=== PATIENT | male | born 1945 | race Caucasian/White ===

== ENCOUNTER 2024-04-29 18:36 | Inpatient (IN) | payer MEDICARE, OTHER, SELFPAY ==
[2024-04-29] VITALS (19 sets, daily range): BP systolic 110–131; BP diastolic 61–97; BMI 23.9
[2024-04-29] MEDS: LOW STRENGTH ASPIRIN 324 MG PO (08:47)
[2024-04-29 09:01] LABS: INR 0.94; PT 13.1 Sec (11.4-14.6)
--- NOTE | 2024-04-29 11:02 | ITS.CL.CATH ---
[facility] [facility] Superintendent - Catheterization
Cardiac Catheterization
Procedure Report:
LEFT HEART CATHETERIZATION
Date of Procedure: April 29, 2024
Procedures performed:
1: Coronary angiography
2: Left ventriculography
Primary Care Physician: Dr. Erin Gabriel
Primary Product Steward: Dr. Chris Guzman
INDICATION: The patient is 78-year-old man who presents with crescendo angina. He had symptoms as recently as last night while moving wood pellets.
ACCESS: The patient was prepped and draped in usual sterile fashion. A 6 [place] sheath was placed in the right radial artery using the Seldinger over the wire technique.
HEMODYNAMIC FINDINGS (mmHg):
LV(s/d,EDP): 121/8, 12
Ao(s/d,m): 123/61, 84
ANGIOGRAPHIC FINDINGS:
Single-plane Left Ventriculography in [place] Projection: Preserved LV systolic function with no significant mitral regurgitation. Visually estimated ejection fraction 60 to 65%
Coronary Angiography:
Dominance: Right
Left Main: Medium caliber with smooth distal calcified 50% stenosis.
Left Anterior Descending: The left anterior descending artery is a medium caliber vessel that has a smooth calcified 40 to 50% ostial stenosis followed by a proximal 6070% focal stenosis. The distal LAD and major distal diagonal branch are widely
patent with normal flow.
Left Circumflex: The circumflex is a small caliber nondominant system that gives rise to 2 major obtuse marginal branches. The ostial circumflex has a calcified 80 to 90% stenosis. The distal vessels are widely patent.
Right Coronary: The right coronary artery is a medium caliber dominant vessel that gives rise to a small caliber posterior descending artery and larger posterior left ventricular branch system. The right coronary artery is heavily calcified within
the proximal and mid portions of the AV groove. There is a smooth 80% stenosis in the mid RCA followed by diffuse 40 to 50% disease. The distal vessel appears to be a good target in the AV groove.
Fluoroscopy Time (min): 2.8
Radiation Dose (mGy): 289
DAP (Gy.cm2): 18.4
Closure device: None. A TR band was applied for hemostasis at the right wrist.
Complications: None.
ASSESSMENT:
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
2: Normal left regular systolic function with no significant mitral gravitation and normal filling pressures.
CONCLUSIONS and RECOMMENDATIONS:
1: Admit for CT surgical evaluation for CABG. Given his crescendo symptoms I think we should consider doing this as an inpatient prior to discharge.
Leni Pritchard M.D.
Copy to: Dr. Erin Gabriel
[2024-04-29] MEDS: NSS 1000 IV ×2 (11:43→12:16)
--- NOTE | 2024-04-29 12:17 | PTCARENOTE ---
Received pt from recovery area. Aox3, no complaints of pain or discomfort. Right radial site CDI. VSS. CAll de within reach.
--- NOTE | 2024-04-29 13:03 | CONSULT.CT ---
Consultation
-
Date/Time Consultation Requested: 04/29/24
Date/Time Consultation Performed: 04/29/24
Requesting Provider: Jaime Pritchard
Performing Provider: Philipp BAH for Errol Bolton MD
Reason for Consultation: CABG evaluation
Patient History
Physicians
Family Physician: Erin Gabriel
Outpatient Cat Cracker Operator: Chris Guzman
Inpatient Cat Cracker Operator: [facility]
History of Present Illness
70-year-old followed by Dr. Chris Guzman for a history of atrial fibrillation (since 2017) and pulmonary embolism (2021)- on Coumadin, who had a positive nuclear stress test last week due to approximately a year long history of throat
tightness ('like a fish flopping around') that worsened with stressful activity but sometimes occurred while watching TV. Mr. Weinstein presented to [facility] 04/29/24 for an elective heart cath which revealed triple-vessel coronary disease.
LHC (R radial -Dr Pritchard):
50% distal left main
40-50% ostial and 60-70% proximal LAD
80-90% ostial (nondominant) circumflex
80% mid RCA followed by diffuse 40-50% stenosis
TTE (04/24/24 [facility]):
LVEF 64.2%. Normal RV size and function. No aortic stenosis or insufficiency. Mild mitral regurgitation
Past Medical History
Past Medical History: Atrial Fib (since 2021) and Other (Pulmonary embolism)
Past Surgical History
Past Surgical History: Appendectomy, Tonsilectomy and Other (Bilateral carpal tunnel release)
Family History
Mother: at Age
Father: at Age
Social History
Alcohol: Occasional
Drug: None
Tobacco: Non-Smoker
Personal:
Living: With Spouse
Employment: Employed (david/contractor)
Allergies
Allergy/AdvReac Type Severity Reaction Status Date / Time
No Known Allergies Allergy Unverified 04/29/24 09:03
Home Medications
�Medication �Instructions �Recorded �Confirmed �Type
acetaminophen 325 mg tablet 650 mg PO Q6H PRN as needed 04/29/24 04/29/24 History
(Tylenol)
metoprolol succinate 50 mg 50 mg PO QPM 04/29/24 04/29/24 History
tablet,extended release 24 hr
nitroglycerin 0.4 mg sublingual 0.4 mg sublingual Q5-15M PRN as 04/29/24 04/29/24 History
tablet needed
warfarin 7.5 mg tablet 7.5 mg PO QPM 04/29/24 04/29/24 History
Review of Systems
-
History Source: Patient
General: Reports No Symptoms
HEENT: Reports No Symptoms
Respiratory: Reports SOB
Cardiac: Reports No Symptoms
Abdomen/GI: Reports No Symptoms
: Reports No Symptoms
Musculoskeletal: Reports No Symptoms
Skin: Reports No Symptoms
Neurological: Reports No Symptoms
Vascular: Reports No Symptoms
Physical Exam
Vital Signs
Temp 97.4 F 04/29/24 12:09
Temp route: Oral 04/29/24 12:09
Pulse 43 04/29/24 12:30
Resp Rate 16 04/29/24 12:09
Blood pressure 131/70 04/29/24 12:08
Blood pressure extremity used: Left upper arm 04/29/24 12:09
Position: Lying 04/29/24 12:09
MAP (cuff-Monae Monitor) 86 04/29/24 12:08
SaO2 98 04/29/24 12:37
Oxygen Mode of Delivery Room air 04/29/24 12:37
Can the patient verbally communicate their pain? Yes 04/29/24 12:37
Body Mass Index (BMI) 0.0 04/29/24 12:49
Labs
PT 13.1 Sec (11.4-14.6) 04/29/24 08:37
Exam
General: Well Developed, Well Nourished and Comfortable
HEENT: Normocephalic, Anicteric, Moist Mucous Membranes and PERRLA
Neck: Trachea Midline
Respiratory: Clear
Cardiac: S1/S2 and Regular Rhythm (SB @48BPM on telemetry review)
GI: Soft, Non Tender, Non Distended and Normal Bowel Sounds
Rectal: Deferred by Provider
Skin: Warm and Dry
Neuro: AO x 3, No Motor Deficits and Nonfocal/Grossly Intact
Extremities: Other (R TR band intact w/o bleeding)
Lymph: No Lymphadenopathy
Psych: Calm
Assessment / Plan
-
78-year-old male found to have triple-vessel coronary disease with preserved LV function
- last dose Coumadin was 04/23/24. Cardiology to determine need for bridge therapy
- Imaging reviewed by Dr. Bolton who spoke to patient regarding risks and benefits of CABG procedure
- Preoperative diagnostics in process for STS risk score calculation
- Patient scheduled for CABG on Monday 05/01
Data Reviewed
-
EKG: Report Reviewed by me and Discussed with Physician
Sap Gatherer: Report Reviewed by me and Discussed with Physician
Echo: Report Reviewed by me and Discussed with Physician
Labs: Labs Reviewed by me and Discussed with Physician
--- NOTE | 2024-04-29 13:47 | PTCARENOTE ---
HR dropped to 39, Peggy Verma NP, made aware. Orders to stop metoprolol. Will continue to monitor.
--- NOTE | 2024-04-29 16:39 | CM ---
CM following for DC planning needs.
Met w/ patient at bedside to complete initial assessment.
Pt. reports that he resides w/ spouse in a private, 2 story home without any steps to enter. He is functionally indep. at baseline w/ ADLs, mobility without the use of any assisted device. He still works as a david.
Pt. reports no other DME in the home, including O2.
Pt. has RX plan and uses [facility] [place] on [address] [facility] for prescription needs.
Pt. anticipates CT Surgery on Saturday.
I reviewed CM role and notified that I will return on . for pre-operative teaching.
Will cont to follow.
[2024-04-29 17:14] LABS: Hematocrit 40.4 % (39.0-52.0); Hemoglobin 13.9 g/dL (13.0-18.0); Mean Corp Hgb Conc. 34.4 g/dL (33.0-37.0); Mean Corpuscular Hgb 33.2 pg (27.0-31.0); Mean Corpuscular Volume 96.4 fL (80.0-94.0); Mean Platelet Volume 9.7 fL (7.4-10.4); Platelet Count 206 10^3/uL (130-400); Red Blood Cell Count 4.19 10^6/uL (4.70-6.10); Red Cell Dist. Width 12.6 % (11.5-14.5); White Blood Cell Count 4.1 10^3/uL (4.8-10.8)
[2024-04-29 17:22] LABS: APTT 30.6 Sec (23.4-35.0)
[2024-04-29] MEDS: LIPITOR 80 MG PO (17:31)
[2024-04-29] MEDS: HEPARIN 25000 UNITS/250 ML IV (17:31)
--- NOTE | 2024-04-29 20:30 | PTCARENOTE ---
Assumed care of pt from IVU RN. Pt to room 2260. Walking rounds completed. Pt AAOx3. Up ad sharad to the bathroom. Pt sinus lorena on the tele monitor. HR high 40s-60s. BP stable. Palpable pulses throughout. No edema. Pt 97% on RA. Lung sounds clear.
Deep breathing and IS encouraged. Abdomen soft/nontender. +BS. Pt voiding spontaneously. Hx of fall at home. Abrasion on elbow C/D/I. Right radial cath site intact. Next PTT ~2330. Denies pain at this time. See worklist for full nursing assessment
and interventions. Call de within reach.
[2024-04-30] VITALS (7 sets, daily range): BP systolic 107–146; BP diastolic 65–97; BMI 23.7
--- NOTE | 2024-04-30 | PTCARENOTE ---
No acute changes in assessment. Pt sinus lorena on the tele monitor. HR 40-50s. BP 122/68. Right radial cath site intact. Heparin infusing. PTT drawn and sent. Call de within reach.
[2024-04-30 00:08] LABS: APTT 94.8 Sec (23.4-35.0)
--- NOTE | 2024-04-30 03:47 | PTCARENOTE ---
No change in assessment. Pt sinus lorena on the monitor. HR 50s. BP stable. Pt on RA. POX 98%. Heparin infusing as ordered. Labs drawn and sent. Call de within reach.
[2024-04-30 04:17] LABS: Hematocrit 38.7 % (39.0-52.0); Hemoglobin 13.5 g/dL (13.0-18.0); Mean Corp Hgb Conc. 34.9 g/dL (33.0-37.0); Mean Corpuscular Hgb 33.3 pg (27.0-31.0); Mean Corpuscular Volume 95.6 fL (80.0-94.0); Mean Platelet Volume 10.1 fL (7.4-10.4); Platelet Count 188 10^3/uL (130-400); Red Blood Cell Count 4.05 10^6/uL (4.70-6.10); Red Cell Dist. Width 12.3 % (11.5-14.5)
[2024-04-30 04:32] LABS: INR 1.03; PT 13.9 Sec (11.4-14.6)
[2024-04-30 04:34] LABS: APTT 57.6 Sec (23.4-35.0)
[2024-04-30 04:43] LABS: ALT (SGPT) 16 U/L (0-50); AST (SGOT) 29 U/L (17-59); Albumin 3.7 g/dl (3.5-5.0); Alkaline Phosphatase 50 U/L (38-126); Blood Urea Nitrogen 22 mg/dl (9-20); Calcium 8.5 mg/dl (8.4-10.2); Carbon Dioxide 24 mmol/L (22-30); Chloride 107 mmol/L (98-107); Direct Bilirubin 0.1 mg/dl (0.0-0.4); Estimated Creatinine Clearance 68 ml/min; Glucose 98 mg/dl (70-99); HDL Cholesterol 63 mg/dl; LDL Cholesterol, Calculated 129 mg/dl; Potassium 4.1 mmol/L (3.5-5.1); Sodium 138 mmol/L (135-145); Total Bilirubin 0.9 mg/dl (0.2-1.3); Total Cholesterol 206 mg/dl (50-199); Total Protein 5.9 g/dl (6.3-8.2); Triglyceride 72 mg/dl (10-149); Very Low Density Lipoprotein 14 mg/dl (0-30); eGFR > 60.00
--- NOTE | 2024-04-30 08:00 | PTCARENOTE ---
Assumed care of patient from sr. payroll processor RN. NEEMAO x 3. SB on monitor. Room air 99%. Heparin drip infusing. Plan for day discussed.
--- NOTE | 2024-04-30 08:25 | W.PN.CARDCBS ---
Addendum entered and electronically signed by Ervin Garcia DO 04/30/24 18:30:
I saw and examined the patient.
The Inside Technical Sales Representative's note was reviewed and I agree with the note.
Comment:
Plan:
Reviewed cath with pt
CT surgery evaluating
CABG likely next 24-48 hrs
Cont IV Heparin, coumadin held
Outpt follow up ATC
Original Note:
Today's Communication / Plan
-
Continue workup per CT surgery.
Tentative plan for CABG in AM
Check ECG
Continue heparin while coumadin on hold
Impression / Plan
-
PCP: Dr. Erin Gabriel
Chemical Production Technician: Dr. Guzman ([facility])
Impression:
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
Paroxysmal atrial fibrillation
h/o PE 2021
Chronic coumadin AC
Echo 04/24/2024 @[facility]: EF 64%, mild MR
Plan:
-He has been having crescendo angina as outpatient and had positive stress test last week. Presented for elective LHC 04/29/2024.
-LHC revealed MV CAD with 50% distal left main, 60-70% stenosis of proximal LAD, 80-90% stenosis of ostial circ, and 80% stenosis of mid RCA.
-CT surgical evaluation ongoing, tentative plan is for CABG tomorrow, 05/01/2024.
-No chest pain overnight. Check ECG.
-No afib noted on review of telemetry.
-Echo 04/24 as noted above with preserved EF and mild MR.
-Coumadin on hold in preparation for CABG. Continue Heparin gtt.
-Continue aspirin 81mg daily
-LDL 129, new to lipitor 80mg daily.
-Hgb A1c 5.5%
Progress Note - Chemical Production Technician
Subjective
Date of Service: April 30, 2024
No complaints
Objective
Labs:
04/30/24 03:39
04/30/24 03:39
Labs
Hgb 13.5 g/dL (13.0-18.0) 04/30/24 03:39
Hct 38.7 % (39.0-52.0) L 04/30/24 03:39
Plt Count 188 10^3/uL (130-400) 04/30/24 03:39
PT 13.9 Sec (11.4-14.6) 04/30/24 03:39
INR 1.03 04/30/24 03:39
APTT 57.6 Sec (23.4-35.0) H 04/30/24 03:39
Sodium 138 mmol/L (135-145) 04/30/24 03:39
Potassium 4.1 mmol/L (3.5-5.1) 04/30/24 03:39
BUN 22 mg/dl (9-20) H 04/30/24 03:39
Creatinine 0.9 mg/dL (0.7-1.3) 04/30/24 03:39
Glucose 98 mg/dl (70-99) 04/30/24 03:39
Vital Signs and I&O:
Vital Signs
Temp Pulse Resp BP Pulse Ox
97.7 F 50 16 119/69 98
04/30/24 03:27 04/30/24 07:00 04/30/24 03:27 04/30/24 03:31 04/30/24 03:27
Vital Signs
Temp Pulse Resp BP Pulse Ox
97.7 F 50 16 119/69 98
04/30/24 03:27 04/30/24 07:00 04/30/24 03:27 04/30/24 03:31 04/30/24 03:27
Intake & Output
04/28/24 04/29/24 04/30/24 05/01/24
06:59 06:59 06:59 06:59
Intake Total 101 / 101
Balance
Physical Exam
Physical Exam
GEN: No distress, awake, alert, oriented x3
HEENT: supple, anicteric, mmm
LUNGS: CTA b/l, no wheezes/rales
CV: Reg, S1/S2, no murmur
EXT: No clubbing, cyanosis, or edema
NEURO: Gross non-focal
SKIN: Warm, dry, no rash
[2024-04-30 08:32] LABS: Glycohemoglobin (HgbA1c) 5.5 % (4.0-5.6)
[2024-04-30] MEDS: LOW STRENGTH ASPIRIN 81 MG PO (08:46)
--- NOTE | 2024-04-30 12:31 | CM ---
Chart reviewed. Patient is independent of ADLS, still works, lives with his in a 2 STH, 0 HANY, 0 DME. Reviewed preoperative and postoperative instructions and restrictions, along with showering guidelines. Patient is agreeable to a home
visit by CT Transitional RN. Plan is for the patient to return home with CT Transitional RN. CM to follow
[2024-04-30 12:34] LABS: APTT 129.3 Sec (23.4-35.0)
--- NOTE | 2024-04-30 13:02 | PTCARENOTE ---
Ambulating in room w/o issue. Denies pain. Heparin gtt adjusted after PTT obtained and resulted. Assessment unchanged from prior.
--- NOTE | 2024-04-30 14:04 | W.PN.UPDATE ---
Update Note
Progress Note Update
Continue ongoing workup. Tentative surgery date is tomorrow May 01, [address] Bolton.
Procedure Type:�Isolated CABG
Perioperative Outcome Estimate %
Operative Mortality 1.91%
Morbidity & Mortality 5.65%
Stroke 0.728%
Renal Failure 0.823%
Reoperation 2.41%
Prolonged Ventilation 2.62%
Deep Sternal Wound Infection 0.076%
Long Hospital Stay (>14 days) 3.8%
Short Hospital Stay (<6 days)* 41.8%
Clinical Summary
Planned Surgery: Isolated CABG, Urgent, First cardiovascular surgery
Demographics: 78 year old, White, male, 73kg, 175cm, BMI: 23.8 kg/m�
Lab Values: Creatinine: 0.9 mg/dL, Hematocrit: 38.7%, WBC Count: 5 10�/�L, Platelet Count: 264054 cells/�L
Substance Abuse: Never smoker, Alcohol use: <=1 drink/week
Coronary Artery Disease: 3 vessels diseased, Unstable Angina, VT: 1 to 7 Days
Valve Disease: Mild MR
Arrhythmia: Recent A-fib, Paroxysmal
[2024-04-30] MEDS: LIPITOR 80 MG PO (16:47)
[2024-04-30] MEDS: HEPARIN 25000 UNITS/250 ML IV (16:48)
--- NOTE | 2024-04-30 17:17 | PTCARENOTE ---
Visiting with family in waiting room. Heparin drip maintained. VSS. Assessment unchanged from prior. Pre op questions answered
--- NOTE | 2024-04-30 20:00 | PTCARENOTE ---
Assumed care of patient at 1900. Patient found resting in bed with family at bedside at time of assessment. Patient is AOx4, follows commands appropirately, moves all extremities, reports being ANVIK wears b/l HAs. Lung sounds are clear and equal
bilaterally saO2 97% on RA. Heart sounds are audible, patient is SR with first deg AV block on the monitor, no observable edema, palpable pulses. Patient has active BS throughout all four quadrants and is voiding in the bathroom. Patient has a L
elbow abrasion with silicone border foam small amount of sanguineous drainage which was changed, and has a generalized rash reportedly from psoriasis. Patient has L FA PIV receiving heparin at 900 units/hr. No c/o pain. Patient educated on preop
prep. Call de within reach.
[2024-05-01] VITALS (10 sets, daily range): BP systolic 75–130; BP diastolic 57–78; BMI 22.9
--- NOTE | 2024-05-01 | PTCARENOTE ---
Patient reassessed. VSS. Now SB on the monitor with first deg AV block. Call ed within reach. Patient clipped and first CHG shower performed prior to HS. Now NPO.
[2024-05-01 03:24] LABS: Hematocrit 38.7 % (39.0-52.0); Hemoglobin 13.7 g/dL (13.0-18.0); Mean Corp Hgb Conc. 35.4 g/dL (33.0-37.0); Mean Corpuscular Hgb 33.4 pg (27.0-31.0); Mean Corpuscular Volume 94.4 fL (80.0-94.0); Mean Platelet Volume 9.8 fL (7.4-10.4); Platelet Count 189 10^3/uL (130-400); Red Cell Dist. Width 12.3 % (11.5-14.5)
[2024-05-01 03:33] LABS: APTT 92.1 Sec (23.4-35.0)
[2024-05-01 04:15] LABS: Blood Urea Nitrogen 25 mg/dl (9-20); Calcium 8.9 mg/dl (8.4-10.2); Carbon Dioxide 23 mmol/L (22-30); Chloride 105 mmol/L (98-107); Estimated Creatinine Clearance 68 ml/min; Glucose 94 mg/dl (70-99); Potassium 4.2 mmol/L (3.5-5.1); Sodium 137 mmol/L (135-145); eGFR > 60.00
[2024-05-01] MEDS: MAGNESIUM OXIDE 500 MG PO (05:53)
[2024-05-01] MEDS: PROTONIX 40 MG PO (05:53)
[2024-05-01] MEDS: LOPRESSOR 12.5 MG PO (05:54)
[2024-05-01] MEDS: BACTROBAN 2% OINTMENT 1 APPLIC NASAL ×2 (05:55→21:07)
[2024-05-01 07:13] LABS: ACT+ - POC 118 Seconds (82-134)
[2024-05-01 07:14] LABS: B.E. - POC -2.3 mmol/L; Glucose - POC 98 mg/dl (70-99); HCO3 - POC 21 mmol/L (21-28); Hematocrit - POC 37 % PCV (42-52); Hemodilution- POC No; Hemoglobin Calculated - POC 12.5; Ionized Calcium - POC 1.19 mmol/L (1.15-1.33); Lactate - POC 0.36 mmol/L (0.36-0.75); O2 Saturation %Calculated-POC 99.9 % (94-98); PCO2 - POC 33 mmHg (35-48); PO2 - POC 259 mmHg (83-108); POC Comment PRE; Potassium - POC 3.7 mmol/L (3.5-5.1); Sodium - POC 139 mmol/L (136-145); Specimen Type - POC Arterial; pH - POC 7.43 (7.35-7.45)
[2024-05-01 08:14] LABS: Urine Albumin Negative (Neg - Trace); Urine Bilirubin Negative (Negative); Urine Character Clear (Clear); Urine Color Yellow; Urine Glucose Negative (Negative); Urine Ketone Negative (Negative); Urine Leukocyte Negative (Negative); Urine Nitrite Negative (Negative); Urine Occult Blood Negative (Negative); Urine Specific Gravity 1.015 (<1.030); Urine Urobilinogen Negative (Neg - 1+)
[2024-05-01 09:32] LABS: ACT+ - POC 542 Seconds (82-134)
[2024-05-01 09:33] LABS: B.E. - POC 1.1 mmol/L; Glucose - POC 111 mg/dl (70-99); HCO3 - POC 25 mmol/L (21-28); Hematocrit - POC 34 % PCV (42-52); Hemodilution- POC No; Hemoglobin Calculated - POC 11.4; Ionized Calcium - POC 1.09 mmol/L (1.15-1.33); O2 Saturation %Calculated-POC 99.8 % (94-98); PCO2 - POC 37 mmHg (35-48); PO2 - POC 209 mmHg (83-108); Potassium - POC 3.8 mmol/L (3.5-5.1); Sodium - POC 140 mmol/L (136-145); Specimen Type - POC Arterial; pH - POC 7.44 (7.35-7.45)
[2024-05-01 09:59] LABS: ACT+ - POC 457 Seconds (82-134)
[2024-05-01 10:16] LABS: ACT+ - POC 628 Seconds (82-134)
[2024-05-01 10:19] LABS: B.E. - POC 5.2 mmol/L; Glucose - POC 112 mg/dl (70-99); HCO3 - POC 28 mmol/L (21-28); Hematocrit - POC 32 % PCV (42-52); Hemodilution- POC Yes; Hemoglobin Calculated - POC 10.9; Ionized Calcium - POC 1.05 mmol/L (1.15-1.33); Lactate - POC < 0.30 mmol/L (0.36-0.75); PCO2 - POC 36 mmHg (35-48); PO2 - POC 379 mmHg (83-108); POC Comment CPB; Potassium - POC 3.4 mmol/L (3.5-5.1); Sodium - POC 139 mmol/L (136-145); Specimen Type - POC Arterial; pH - POC 7.51 (7.35-7.45)
[2024-05-01 10:27] LABS: B.E. - POC 1.8 mmol/L; Glucose - POC 110 mg/dl (70-99); HCO3 - POC 26 mmol/L (21-28); Hematocrit - POC 27 % PCV (42-52); Hemodilution- POC Yes; Hemoglobin Calculated - POC 9.3; Ionized Calcium - POC 1.01 mmol/L (1.15-1.33); Lactate - POC 0.47 mmol/L (0.36-0.75); O2 Saturation %Calculated-POC 99.9 % (94-98); PCO2 - POC 35 mmHg (35-48); PO2 - POC 281 mmHg (83-108); POC Comment CPB; Potassium - POC 4.4 mmol/L (3.5-5.1); Sodium - POC 137 mmol/L (136-145); Specimen Type - POC Arterial; pH - POC 7.47 (7.35-7.45)
[2024-05-01 10:29] LABS: ACT+ - POC 634 Seconds (82-134)
[2024-05-01 10:52] LABS: B.E. - POC 0.7 mmol/L; Glucose - POC 125 mg/dl (70-99); HCO3 - POC 26 mmol/L (21-28); Hematocrit - POC 28 % PCV (42-52); Hemodilution- POC Yes; Hemoglobin Calculated - POC 9.6; Ionized Calcium - POC 1.06 mmol/L (1.15-1.33); Lactate - POC 0.39 mmol/L (0.36-0.75); O2 Saturation %Calculated-POC 99.9 % (94-98); PCO2 - POC 41 mmHg (35-48); PO2 - POC 291 mmHg (83-108); POC Comment CPB; Potassium - POC 4.1 mmol/L (3.5-5.1); Sodium - POC 140 mmol/L (136-145); Specimen Type - POC Arterial
[2024-05-01 10:55] LABS: ACT+ - POC 620 Seconds (82-134)
[2024-05-01 11:18] LABS: B.E. - POC 2.5 mmol/L; Glucose - POC 131 mg/dl (70-99); HCO3 - POC 27 mmol/L (21-28); Hematocrit - POC 27 % PCV (42-52); Hemodilution- POC Yes; Hemoglobin Calculated - POC 9.3; Ionized Calcium - POC 1.06 mmol/L (1.15-1.33); Lactate - POC 0.33 mmol/L (0.36-0.75); O2 Saturation %Calculated-POC 99.9 % (94-98); PCO2 - POC 39 mmHg (35-48); PO2 - POC 282 mmHg (83-108); POC Comment CPB; Potassium - POC 4.2 mmol/L (3.5-5.1); Sodium - POC 140 mmol/L (136-145); Specimen Type - POC Arterial; pH - POC 7.45 (7.35-7.45)
[2024-05-01 11:21] LABS: ACT+ - POC 593 Seconds (82-134)
--- NOTE | 2024-05-01 11:27 | CM ---
Chart reviewed. Patient is in the OR today. Patient is independent of ADLS, lives with his , in a 2 STH, 0 HANY, 0 DME. Plan is for the patient to return home with CT Transitional RN. CM to follow
[2024-05-01 11:45] LABS: Glucose - POC 140 mg/dl (70-99); HCO3 - POC 25 mmol/L (21-28); Hematocrit - POC 29 % PCV (42-52); Hemodilution- POC Yes; Hemoglobin Calculated - POC 9.9; Ionized Calcium - POC 1.07 mmol/L (1.15-1.33); Lactate - POC 0.67 mmol/L (0.36-0.75); O2 Saturation %Calculated-POC 99.9 % (94-98); PCO2 - POC 41 mmHg (35-48); PO2 - POC 288 mmHg (83-108); POC Comment WARM; Sodium - POC 141 mmol/L (136-145); Specimen Type - POC Arterial; pH - POC 7.39 (7.35-7.45)
[2024-05-01 11:46] LABS: ACT+ - POC 533 Seconds (82-134)
[2024-05-01 12:04] LABS: B.E. - POC 0.2 mmol/L; Glucose - POC 132 mg/dl (70-99); HCO3 - POC 25 mmol/L (21-28); Hematocrit - POC 29 % PCV (42-52); Hemodilution- POC Yes; Hemoglobin Calculated - POC 9.8; Ionized Calcium - POC 1.05 mmol/L (1.15-1.33); O2 Saturation %Calculated-POC 99.9 % (94-98); PCO2 - POC 41 mmHg (35-48); PO2 - POC 320 mmHg (83-108); POC Comment WARM; Potassium - POC 3.8 mmol/L (3.5-5.1); Sodium - POC 142 mmol/L (136-145); Specimen Type - POC Arterial
[2024-05-01 12:09] LABS: ACT+ - POC 549 Seconds (82-134)
[2024-05-01 12:35] LABS: ACT+ - POC 104 Seconds (82-134)
[2024-05-01 12:41] LABS: B.E. - POC -1.4 mmol/L; Glucose - POC 122 mg/dl (70-99); HCO3 - POC 23 mmol/L (21-28); Hematocrit - POC 26 % PCV (42-52); Hemodilution- POC Yes; Hemoglobin Calculated - POC 8.8; Ionized Calcium - POC 1.25 mmol/L (1.15-1.33); Lactate - POC < 0.30 mmol/L (0.36-0.75); PCO2 - POC 36 mmHg (35-48); PO2 - POC 458 mmHg (83-108); POC Comment POST; Potassium - POC 3.5 mmol/L (3.5-5.1); Sodium - POC 142 mmol/L (136-145); Specimen Type - POC Arterial; pH - POC 7.41 (7.35-7.45)
--- NOTE | 2024-05-01 12:59 | W.IMMPOSTOP ---
Addendum entered and electronically signed by Errol Bolton MD 05/01/24 14:25:
[id number]
Original Note:
Surgical Immed Post Op Note
-
CARDIAC SURGERY OPERATIVE NOTE:
Preoperative Dx:
MVCAD
PAF
Postoperative Dx:
Same
Procedures:
1) Median sternotomy
2) Takedown of JOHN (narrow pedicle)
3) Endoscopic harvest/prep of RLE GSV
4) Encompass MAZE procedure
5) ELAA (#35 AtriClip)
6) CABG x 4 (JOHN to LAD, GSV to D1, GSV to OM, GSV to RPDA)
Surgeon:
Errol Bolton M.D.
Assistants:
Camila Gibbs P.A.-C.; endoscopic harvest/prep of RLE GSV; certified surgical tech/first assistant throughout
Brionna Renae P.A.-C.; [id number] closure
Anesthesia:
Douglas Estrada M.D., Anabel Santiago, C.R.N.A. and Adelaide López, C.R.N.A.
Perfusion:
Karen Warner, C.C.P.; XC: 95min, CPB 146min
Findings:
JOHN was healthy appearing conduit w/ very brisk blood flow; ELD 2.75mm
GSV was healthy appearing conduit w/ ELD 3.25-3.50mm
ANAT was of windsock morphology & successfully excluded w/ a 35mm AtriClip - confirmed w/ PAULINA
Encompass ablation performed w/ 3 - lines @ 3 levels - Starting rhythm: Sinus Bradycardia; Ending rhythm: Sinus Bradycardia
LAD was obscured by epicardial adipose tissue. It was identified at its junction w/ D2 and tracked distally. Healthy landeros at anastomosis, ELD 2.75mm. Very brisk blood flow observed w/ release of proximal JOHN bulldog clamp
D1 was visible on the epicardial surface and then took a very shallow (0.5mm) intramyocardial course. Healthy landeros at anastomosis, ELD 1.75mm
OM was visible on the epicardial surface. Healthy landeros at anastomosis, ELD 2.5mm
RPDA was visible on the epicardial surface. Healthy landeros at anastomosis, ELD 2.25mm
Excellent flow in all grafts on postoperative transit-time U/S flow probe assessments
Post-PAULINA: Normal LVEF 60-65%, no RWMA, mild MR, mildly ascending aortic dilation (4.0cm)
Implants:
AtriClip 35mm
Epicardial V-wire x 1
Grounding wire x 1
CT x 4 (B/L pleural, inferior mediastinal, superior mediastinal)
Sternal wires x 6
Sternal 'X' plate w/ 4 - 14mm and 4 - 12mm screws
Sternal 'X' plate w/ 4 - 10mm screws
Complications:
None
Transfusions:
None
Condition:
58 isoelectric sinus (0.2/0.1); 107/63. CVP 16. 100%
GTTS: insulin 1, precedex 0.5
Stable/guarded to CVICU
--- NOTE | 2024-05-01 13:14 | W.CVOR.SURPR ---
CVOR Surgeon Immed Pre Op
-
I have examined this patient prior to performance of the scheduled procedure.
The patient's condition is unchanged from the time of the dictated/written History and
Physical and the patient is able to undergo the scheduled procedure.
[2024-05-01 13:37] LABS: Glucose - Point of Care 102 mg/dl (70-99)
--- NOTE | 2024-05-01 13:40 | CON.INTV ---
Consultation
Consultation Request
Date/Time Consultation Requested: 05/01/2024 - 1312
Date/Time Consultation Performed: 05/01/2024 - 1333
Requesting Provider: NIURKA Mitchell
Performing Provider: Dr. Vdiales
Reason for Consultation: s/p CABG x4
Medical History
-
Chief Complaint: Elective left heart catheterization
History of Present Illness:
78-year-old male with a past medical history of A-fib on Coumadin and history of PE who presented for an elective left heart catheterization. He is followed by Dr. Guzman and had a positive nuclear stress test last week due to a year-long history
of throat tightness that worsened with stress with activity and also occurred at times at rest. Left heart catheterization performed on 04/29/2024 showing severe triple-vessel disease. Surgical revascularization was recommended and the patient
agreed to this procedure. Today he underwent a CABG x 4 with a left atrial appendage exclusion with a 35 mm AtriClip. There were no complications and he was transferred to the CVICU in stable condition with [employer] services consulted for
additional management/recommendations.
When I saw the patient today he was resting in bed, on SIMV at 14/500/40%/5, pressure support: 5. PIP was 25 cmH2O, VTe 549 mL and breathing at 14 breaths/min. Heart rate 59 and BP via A-line: 93/52. Currently on Levophed at 4mcg/min, insulin
drip at 1.3 units/hr.
PMHx: A-fib (since 2021) on Coumadin, history of PE
PSHx: Appendectomy, tonsillectomy, bilateral carpal tunnel release
Past Medical History
Past Medical History: Other (Above as per HPI)
Past Surgical History: Other (Above as per HPI)
Social History
Tobacco: Non-smoker
Alcohol: Occasional
Drug: None
Personal:
Living: With Family
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
Family History
Family History: Reviewed & Not Pertinent
Allergies / Home Medications
Allergies
Allergy/AdvReac Type Severity Reaction Status Date / Time
No Known Allergies Allergy Unverified 04/29/24 09:03
Home Medications
�Medication �Instructions �Recorded �Confirmed �Last Taken �Type
acetaminophen 325 mg tablet 650 mg PO Q6H PRN MILD PAIN 04/29/24 04/29/24 Unknown History
(Tylenol)
metoprolol succinate 50 mg 50 mg PO QPM Heart 04/29/24 04/29/24 04/28/24 19:00 History
tablet,extended release 24 hr Disease/Condition
nitroglycerin 0.4 mg sublingual 0.4 mg sublingual Q5-15M PRN CHEST 04/29/24 04/29/24 04/28/24 16:00 History
tablet PAIN
warfarin 7.5 mg tablet 7.5 mg PO QPM Blood Clot 04/29/24 04/29/24 04/23/24 19:00 History
Prevention/Tx
Review of Systems
-
Unable to Obtain full review of systems at this time due to: Patient Intubation
Vitals / Labs / Diagnostic Testing
Vital Signs
Temp Pulse Resp BP Pulse Ox
96.2 F L 56 15 119/78 100
05/01/24 13:41 05/01/24 13:50 05/01/24 13:45 05/01/24 13:50 05/01/24 13:50
Laboratory Results
04/30/24 05/01/24 05/01/24
18:31 03:14 13:29
PT 19.5 H
INR 1.62
APTT 117.0 H 92.1 H 32.8
pH 7.43
pCO2 36
pO2 178 H
HCO3 23.9
O2 Delivery Level
Diagnostic Testing:
Physical Exam
-
HEENT: Normocephalic, Anicteric and Other (ETT in place)
Cardiovascular: S1/S2 and Peripheral Edema (negative)
Respiratory: Wheeze (negative), Rales (negative), Rhonchi (negative), Non-Labored Respirations, Other (Mechanical breath sounds heard bilaterally) and Other (bilateral pleural chest tubes and mediastinal chest tubes x2)
GI: Soft, Non Distended, Non Tender and Normal Bowel Sounds
Neurology: Tremors (negative) and Other (Sedated)
Skin: Warm and Dry
General: Respiratory Distress (negative), Comfortable, Fever (negative) and Chills (negative)
Assessment
-
Assessment: 78-year-old male with a past medical history of A-fib on Coumadin and history of PE who presented for an elective left heart catheterization. He is followed by Dr. Guzman and had a positive nuclear stress test last week due to a
year-long history of throat tightness that worsened with stress with activity and also occurred at times at rest. Left heart catheterization performed on 04/29/2024 showing severe triple-vessel disease. Surgical revascularization was recommended
and the patient agreed to this procedure. Today he underwent a CABG x 4 with a left atrial appendage exclusion with a 35 mm AtriClip. There were no complications and he was transferred to the CVICU in stable condition with [employer] services
consulted for additional management/recommendations.
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
Impression:
#Triple-vessel disease s/p CABG x 4 (POD #0)
#History of A-fib s/p left atrial appendage exclusion with 35mm AtriClip (POD#0)
#Acute anemia due to above
#Acute thrombocytopenia
#Hx of PE
Plan:
Ventilator settings reviewed
FiO2 will be weaned to maintain SpO2 >90-94%
Minute ventilation will be adjusted
Arterial blood gases will be monitored
Spontaneous breathing trial will be attempted with hopeful extubation after anesthesia/sedation wear off
prn nebulized bronchodilators
Pulmonary artery catheter parameters will be followed
Pressors/antihypertensive/inotropes/diuretics will be provided as needed
Maintain MAP>65
Replete electrolytes with K>4, Mg>2
Monitor chest tube output (bilateral pleural chest tubes + mediastinal chest tubes x2)
Monitor hemoglobin
Monitor platelet count and coags
Transfuse blood products as needed to maintain Hb>7g/dL, plt>50k (given post-operative status)
CT surgery managing chest tubes
Monitor blood sugar to maintain euglycemia with goal BG 140-180
Insulin drip per protocol
Aspiration precautions
VAP prevention protocol
DVT prophylaxis
Early nutrition
Early mobilization
Critical care statement: A total of 46 minutes of critical care time was provided for this patient today. This includes management of ventilator, spontaneous breathing trial, arterial blood gases, pressors, of unstable vital signs, evaluation of the
patient at bedside, reviewing the patient's pertinent medical records including radiographs, microbiology, laboratory evaluations, and discussion with primary team and critical care nursing.
[2024-05-01 13:43] LABS: B.E. -0.2 mmol/L; HCO3 23.9 mmol/L (21-28); Ionized Calcium 1.16 mMOL/L (1.15-1.33); PCO2 36 mmHg (35-48); PO2 178 mmHg (83-108); Potassium 3.3 mMOL/L (3.5-5.1); Sodium 139 mMOL/L (136-145); pH 7.43 (7.35-7.45)
--- NOTE | 2024-05-01 13:43 | W.PN.UPDATE ---
Update Note
Progress Note Update
70-year-old male followed by Dr. Chris Guzman for a history of atrial fibrillation (since 2017) and pulmonary embolism (2021)- on Coumadin, who had a positive nuclear stress test last week due to approximately a year long history of throat tightness
('like a fish flopping around') that worsened with stressful activity but sometimes occurred while watching TV. Mr. Weinstein presented to [facility] 04/29/24 for an elective heart cath which revealed triple-vessel coronary disease. Last
Coumadin dose was 04/23/24.
IV fluids: 1700
U.O.:� 750
Blood:� none
Wires:� 1 V-wire/1 ground wire
Inotropes:� none
Pressors:� none
Sedatives:� Precedex 0.5
�
NEURO: sedated, pupils +2mm B/L
RESP: #8OT @22cm> 500/60%/14/5. Lungs clear B/L. 2 mediastinal (XXcc on arrival) and R/L pleural (XXcc on arrival) chest tubes to -20cm suction. Sanguineous drainage
CV: RRR +S1, S2, no S3, no�rub, no murmur. Aquacell to median sternotomy. RIJ cordis intact
ABD: round, soft, no BS
EXT: no edema, +2/4 DP pulses B/L, no femoral bruit, RLE ERWIN wrap intact; left radial A-line intact
: Hull with clear yellow urine
�
A/P: POD #0 s/p CABG x 4 (JOHN to LAD, GSV to D1, GSV to OM, GSV to RPDA), [facility] MAZE, ELAA (#35 AtriClip)
PAULINA: EF�55-60%, mild MR/TR
- wean and extubate
# CAD
-will require ASA/Plavix, statin
- add beta moni as HR permits (currently SB)
# Hx atrial fibrillation
- currently sinus bradycardia
- Amiodarone for AF prophylaxis
- will discuss timing for resumption of anticoagulation with surgeon
# acute surgical blood loss anemia-expected
# acute post-op thrombocytopenia
- trend CBC and CT drainage
�
�
[2024-05-01 13:52] LABS: Hematocrit 27.4 % (39.0-52.0); Hemoglobin 9.8 g/dL (13.0-18.0); Platelet Count 88 10^3/uL (130-400)
[2024-05-01 13:55] LABS: INR 1.62; PT 19.5 Sec (11.4-14.6)
[2024-05-01 13:56] LABS: APTT 32.8 Sec (23.4-35.0)
[2024-05-01 14:05] LABS: Blood Urea Nitrogen 19 mg/dl (9-20); Estimated Creatinine Clearance 78 ml/min; Glucose 108 mg/dl (70-99); Magnesium 2.7 mg/dl (1.6-2.3)
[2024-05-01] MEDS: KCL 50 IV ×2 (14:10→15:30)
--- NOTE | 2024-05-01 14:59 | W.PN.CARDCBS ---
Addendum entered and electronically signed by Channing Henry MD 05/01/24 17:36:
I saw and examined the patient.
The Quality Assurance Consultant's note was reviewed and I agree with the note.
Comment: 78M presenting with crescendo angina found to have MV CAD and underwent CABG x4 earlier today
Doing well post-op
Extubated
Only requring low dose levo
Filling pressures at goal based on invasive hemodynamics
Maintaining sinus rhythm on telemetry
Agree with current cardiac meds�aspirin/Plavix, high intensity statin and beta-moni
Original Note:
Today's Communication / Plan
-
Continue post op care
Impression / Plan
-
PCP: Dr. Erin Gabriel
Professor Of Family Medicine: Dr. Guzman ([facility] Cardiology)
Impression:
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
s/p CABG x 4 (JOHN to LAD, GSV to D1, GSV to OM, GSV to RPDA), SWAPNA PRESLEY (#35 AtriClip) 05/01/2024
Paroxysmal atrial fibrillation
h/o PE 2021
Chronic coumadin AC
Echo 04/24/2024 @[facility]: EF 64%, mild MR
Plan:
-Noted crescendo angina as outpatient and had positive stress test, so referred for LHC 04/29/2024. LHC revealed MV CAD with 50% distal left main, 60-70% stenosis of proximal LAD, 80-90% stenosis of ostial circ, and 80% stenosis of mid RCA.
-s/p CABG x4 (JOHN to LAD, GSV to D1, GSV to OM, GSV to RPDA) 05/01/2024. POD#0.
-Seen post-op. Remains intubated, sedated.
-BPs have been labile, improving following fluid bolus.
-Levo currently off. Follow BP closely.
-No blood products required intra-op. Hgb 9.8. Plt 88. Continue to follow.
-Post-Op ECG overall stable compared to pre-op
-Echo 04/24 as noted above with preserved EF and mild MR.
-Coumadin held pre-op, resume once safe from a surgical standpoint.
-Continue aspirin, plavix.
-LDL 129, new to lipitor 80mg daily.
-Hgb A1c 5.5%
-Continue post op care
Progress Note - Professor Of Family Medicine
Subjective
Date of Service: May 01, 2024
intubated, sedated.
Objective
Labs:
05/01/24 13:29
Labs
Hgb 9.8 g/dL (13.0-18.0) L D 05/01/24 13:29
Hct 27.4 % (39.0-52.0) L 05/01/24 13:29
Plt Count 88 10^3/uL (130-400) L D 05/01/24 13:29
PT 19.5 Sec (11.4-14.6) H 05/01/24 13:29
INR 1.62 05/01/24 13:29
APTT 32.8 Sec (23.4-35.0) 05/01/24 13:29
Sodium 137 mmol/L (135-145) 05/01/24 03:14
Potassium 4.2 mmol/L (3.5-5.1) 05/01/24 03:14
BUN 19 mg/dl (9-20) 05/01/24 13:29
Creatinine 0.8 mg/dL (0.7-1.3) 05/01/24 13:29
Glucose 108 mg/dl (70-99) H 05/01/24 13:29
Vital Signs and I&O:
Vital Signs
Temp Pulse Resp BP Pulse Ox
96.2 F L 56 15 119/78 95
05/01/24 13:41 05/01/24 13:50 05/01/24 13:45 05/01/24 13:50 05/01/24 14:51
Vital Signs
Temp Pulse Resp BP Pulse Ox
96.2 F L 56 15 119/78 95
05/01/24 13:41 05/01/24 13:50 05/01/24 13:45 05/01/24 13:50 05/01/24 14:51
Intake & Output
04/29/24 04/30/24 05/01/24 05/02/24
06:59 06:59 06:59 06:59
Intake Total 101 / 101 399 / 399 31.3 / 31.3
Output Total 1060 / 1060
Balance 101 / 101 399 / 399 -1028.7 / -1028.7
Physical Exam
Physical Exam
GEN: Intubated, sedated
HEENT: supple, anicteric, mmm
LUNGS: CTA b/l, no wheezes/rales
CV: Reg, S1/S2, no murmur
EXT: No clubbing, cyanosis, or edema
SKIN: Warm, dry, no rash
[2024-05-01 15:11] LABS: Glucose - Point of Care 98 mg/dl (70-99)
[2024-05-01] MEDS: ANCEF 10 IV ×2 (15:50)
[2024-05-01] MEDS: NEURONTIN PO ×2 (15:50→16:21)
[2024-05-01] MEDS: NSS 500 IV (15:51)
[2024-05-01] MEDS: TYLENOL PO (15:51)
[2024-05-01] MEDS: LOW STRENGTH ASPIRIN PO (15:58)
[2024-05-01 16:08] LABS: Glucose - Point of Care 103 mg/dl (70-99)
[2024-05-01] MEDS: CALCIUM GLUCONATE 100 IV (16:21)
[2024-05-01 16:26] LABS: B.E. 0.2 mmol/L; HCO3 24.6 mmol/L (21-28); O2 Saturation % 99.3 % (94-98); PCO2 38 mmHg (35-48); PO2 134 mmHg (83-108); Potassium 4.3 mMOL/L (3.5-5.1); pH 7.42 (7.35-7.45)
[2024-05-01] MEDS: DILAUDID 0.5 MG IV (17:01)
[2024-05-01 17:09] LABS: Glucose - Point of Care 118 mg/dl (70-99)
[2024-05-01 18:04] LABS: Glucose - Point of Care 118 mg/dl (70-99)
[2024-05-01 18:14] LABS: Hematocrit 30.3 % (39.0-52.0); Hemoglobin 10.8 g/dL (13.0-18.0); Platelet Count 155 10^3/uL (130-400)
--- NOTE | 2024-05-01 18:15 | PTCARENOTE ---
rec'd pt this shift from CVOR. Pt mechanically ventilated and sedated. Pt with RT IJ cordis with Levo infusing at 2mcg/min and IV insulin. Labs sent. EKG done. Labs replaced as per protocol. BP labile, on and off Levophed. 500ml LR bolus given x 2.
Insulin drip titrated according to glycemic protocol. See worklsit for VS/I and O and assessments.
--- NOTE | 2024-05-01 18:27 | PTCARENOTE ---
Pt placed on CPAP and extubated at 1635. Oxygen weaned to 2l n/c oxygen. Pulse ox 98%. Pt NSR on monitor. Pt bathed and turned side to side. Encouraged coughing and deep breathing and use of IS.
[2024-05-01] MEDS: LIPITOR 80 MG PO (18:30)
[2024-05-01] MEDS: LOW STRENGTH ASPIRIN 81 MG PO (18:30)
[2024-05-01] MEDS: SENOKOT-S 1 TABLET PO (20:00)
--- NOTE | 2024-05-01 20:00 | PTCARENOTE ---
Assumed care of patient at 1900. Patient found resting in bed at time of assessment. Patient is AOx4, follows commands appropriately, moves all extremities, drowsy. Lung sounds are diminished at the bases, saO2 95% on RA, IS 1000, patient has CTx4:
R/L pleural draining red sanguineous and medsx2 draining red sanguineous. Heart sounds are audible, there is a rub present on auscultation, patient is SR on the monitor, patient has V wires with VVI settings 40/16/0.8. Patient has hypoactive BS with
barahona catheter draining clear yellow urine. There is a sternal incison with aquacell dressing that is CDI, R groin puncture approx with surg adhesive ASSISTANT PROFESSOR OF THEATER, RLE incision with ERWIN wrap, an ABD dressing over CT wounds that is CDI, and L elbow abrasion
with foam dressing small amount of drainage present. Patient has R IJ cordis with slic, L radial Mari, and L FA PIV. Patient is currently receiving Levo@2 and insulin gtt. Call de within reach.
[2024-05-01 20:06] LABS: Glucose - Point of Care 95 mg/dl (70-99)
[2024-05-01] MEDS: ANCEF 5 IV (20:53)
[2024-05-01] MEDS: SENOKOT-S PO (21:05)
[2024-05-01] MEDS: TYLENOL 1000 MG PO (22:08)
[2024-05-01] MEDS: NEURONTIN 100 MG PO (22:08)
[2024-05-01 22:28] LABS: Glucose - Point of Care 104 mg/dl (70-99)
[2024-05-02] VITALS (31 sets, daily range): BP systolic 72–118; BP diastolic 44–75; PULSE 61; O2SAT 95; BMI 24.0
--- NOTE | 2024-05-02 | PTCARENOTE ---
Patient with two incidences requiring sustained v pacing overnight. Patient became extremely hypotensive somewhat diaphoretic and drowsy. Oriented throughout. CT PA at bedside. Resolved spontaneously. Patient c/o shock like sensation from pacing. CT
PA lowered mA to 10. This RN further adjusted mA to 7 after threshould testing which patient reported improved shocking sensation. Patient currently in SR on the monitor. will continue to monitor.
[2024-05-02 00:24] LABS: Glucose - Point of Care 115 mg/dl (70-99)
[2024-05-02 02:09] LABS: Glucose - Point of Care 100 mg/dl (70-99)
[2024-05-02 03:13] LABS: Hematocrit 28.9 % (39.0-52.0); Hemoglobin 10.1 g/dL (13.0-18.0); Mean Corp Hgb Conc. 34.9 g/dL (33.0-37.0); Mean Corpuscular Hgb 33.4 pg (27.0-31.0); Mean Corpuscular Volume 95.7 fL (80.0-94.0); Mean Platelet Volume 10.3 fL (7.4-10.4); Platelet Count 181 10^3/uL (130-400); Red Blood Cell Count 3.02 10^6/uL (4.70-6.10); Red Cell Dist. Width 12.5 % (11.5-14.5); White Blood Cell Count 13.3 10^3/uL (4.8-10.8)
[2024-05-02 03:23] LABS: Blood Urea Nitrogen 23 mg/dl (9-20); Calcium 8.1 mg/dl (8.4-10.2); Carbon Dioxide 24 mmol/L (22-30); Chloride 107 mmol/L (98-107); Estimated Creatinine Clearance 62 ml/min; Glucose 98 mg/dl (70-99); Magnesium 2.1 mg/dl (1.6-2.3); Sodium 137 mmol/L (135-145); eGFR > 60.00
[2024-05-02 04:19] LABS: Glucose - Point of Care 88 mg/dl (70-99)
[2024-05-02] MEDS: ANCEF 5 IV ×2 (04:52→11:32)
[2024-05-02] MEDS: TYLENOL 1000 MG PO ×3 (05:09→23:01)
[2024-05-02] MEDS: ALBUMIN 5% 250 IV (05:09)
--- NOTE | 2024-05-02 05:43 | W.PN.CT ---
Today's Communication / Plan
-
-pod #1
-had intermittent bradycardia with hypotension, requiring pacing @ 40 bpm and increase of Levo briefly. Maintain pw. Will hold BB and Amio
-of note, pt is aware when he is pacing, feels little zap. PW @ 45 bpm backup, output was decreased to 7 (has double safety margin on output)
-drips: Levo 2, Insulin
-CT outputs: 2 meds 115/215, 2 pleur 115/190 in 12/24 hrs
-abnormal ECG, ? pericarditis/+ rub
-current meds (ASA, Plavix, Lipitor, Protonix, Feosol). Holding BB and Amio d/t bradycardia. Eventually restart Coumadin
Assessment / Plan
-
- Mv-CAD - s/p CABG x 4 (JOHN to LAD, GSV to D1, GSV to OM, GSV to RPDA); [facility] MAZE procedure; ELAA (#35 AtriClip) by Dr. Bolton on 05/01/24, pod #1
- Hx PE 2021
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
- Thoracic aneurysm 4.2 cm
- HTN/ HLD
- Acute postop blood loss anemia- stable, no transfusion
- Acute postop thrombocytopenia - stable
- Acute postop bradycardia, requiring pacing @40
- Acute postop atelectasis
- Acute postop suspected pericarditis/+ rub
- Acute postop hypovolemia with subsequent hypervolemia
Discussed patient care with: Nursing and Care Team
Subjective
-
Date of Service: May 02, 2024
Objective Data
-
Lab Results
05/02/24 02:21
05/02/24 02:21
PT 19.5 Sec (11.4-14.6) H 05/01/24 13:29
INR 1.62 05/01/24 13:29
APTT 32.8 Sec (23.4-35.0) 05/01/24 13:29
Vital Signs
Vital Signs
Temp Pulse Resp BP Pulse Ox
98.5 F 65 13 111/52 98
05/02/24 04:18 05/02/24 03:14 05/02/24 04:18 05/02/24 03:14 05/02/24 04:18
CT Intake/Output/Weight
05/01/24 05/01/24 05/02/24
06:59 18:59 06:59
Intake Total 108 / 399 1309.1 / 1517.8 208.7 / 1517.8
Output Total 1840 / 2405 565 / 2405
Balance 108 / 399 -530.9 / -887.2 -356.3 / -887.2
SaO2: 98
Physical Exam
-
General: Awake and AOx3
Cardiovascular: Regular rate & rhythm, No Murmurs and Rub
Respiratory: Decreased Breath Sounds
Sternum: Stable
Incision: Clean, Dry and Intact
Extremities: No Edema
Data Reviewed
-
Lab Results: Results Reviewed
Medications: Active Meds Reviewed
Chest X-Ray: Report Reviewed and Image Reviewed
ECG: Report Reviewed and Image Reviewed
[2024-05-02 06:32] LABS: Glucose - Point of Care 117 mg/dl (70-99)
--- NOTE | 2024-05-02 07:12 | PTCARENOTE ---
Patient reassessed. UOP decreased given 250mL 5% albumin. Patient with additional pacing episode at approx 0400 without hypotensive response. AM labs obtained. AM hygiene care provided. Per CT PA pt to remain in bed do not deline do not remove
barahona.
--- NOTE | 2024-05-02 07:39 | W.PN.INTV ---
Today's Communication / Plan
Recommendations
Up OOB as tolerated
Pain control
Encourage incentive spirometer use
Continue insulin drip with goal BG 140�180
Cardiac rehab consult
Goal SpO2 >90-94%
Patient to remain CVICU status while on insulin drip. Once he is transitioned off insulin drip and transferred to CVICU�telemetry status, then we will sign off at that time. Please call pulmonary service back with any questions or concerns.
Assessment
-
Assessment: 78-year-old male with a past medical history of A-fib on Coumadin and history of PE who presented for an elective left heart catheterization. He is followed by Dr. Guzman and had a positive nuclear stress test last week due to a
year-long history of throat tightness that worsened with stress with activity and also occurred at times at rest. Left heart catheterization performed on 04/29/2024 showing severe triple-vessel disease. Surgical revascularization was recommended
and the patient agreed to this procedure. Today he underwent a CABG x 4 with a left atrial appendage exclusion with a 35 mm AtriClip. There were no complications and he was transferred to the CVICU in stable condition with Payroll Tax Specialist services
consulted for additional management/recommendations.
Chronic conditions RESIDENTIAL FRAMING CARPENTER: A-fib (since 2021) on Coumadin, history of PE
Impression:
#Triple-vessel disease s/p CABG x 4 (POD #1)
#History of A-fib s/p left atrial appendage exclusion with 35mm AtriClip (POD#1)
#Acute anemia due to above
#Acute thrombocytopenia
#Hx of PE
Plan:
Patient successfully extubated on 05/01/2024, and is currently on room air breathing comfortably with saturation of 97%
Maintain SpO2 >90-94%
prn nebulized bronchodilators - not currently bronchospastic
Encourage incentive spirometer q1hr while awake
Pulmonary artery catheter parameters will be followed
Pressors/antihypertensive/inotropes/diuretics will be provided as needed
Maintain MAP>65
Replete electrolytes with K>4, Mg>2
Monitor chest tube output (bilateral pleural chest tubes + mediastinal chest tubes x2)
Monitor hemoglobin
Monitor platelet count and coags
Transfuse blood products as needed to maintain Hb>7g/dL, plt>50k (given post-operative status)
CT surgery managing chest tubes
Monitor blood sugar to maintain euglycemia with goal BG 140-180
Insulin drip per protocol - plan to be stopped later this afternoon
Once off insulin drip then would continue with ISS SQ AC to maintain BG goal as above
Aspiration precautions
DVT prophylaxis
Early nutrition
Early mobilization
Patient to remain CVICU status while on insulin drip. Once he is transitioned off the insulin drip and transferred to CVICU�telemetry status, then we will sign off at that time. Please call pulmonary service back with any questions or concerns.
Thank you for allowing us to be involved in the care of this patient.
Critical care statement: A total of 41 minutes of critical care time was provided for this patient today. This includes management of ventilator, spontaneous breathing trial, arterial blood gases, pressors, of unstable vital signs, evaluation of the
patient at bedside, reviewing the patient's pertinent medical records including radiographs, microbiology, laboratory evaluations, and discussion with primary team and critical care nursing.
Subjective Dataa
Subjective Data
Date of Service:
Date of Service: May 02, 2024
Chief Complaint: Payroll Tax Specialist Follow Up
Subjective:
Patient seen and evaluated today at bedside. Patient's at bedside, and all questions were answered. He currently is on insulin drip at 2.3 units/h. He is on room air breathing comfortably. He is sitting in the chair. Heart rate 65,
saturating 97% and BP 90/60. He denies HSU, nausea, fevers or chills. He has postoperative site chest discomfort.
Review of Systems
General: Other (Negative unless mentioned above)
Objective Data
Data Reviewed
Vital Signs / I&O / Oxygen:
Vital Signs
Temp Pulse Resp BP Pulse Ox
98.5 F 66 16 111/52 98
05/02/24 06:00 05/02/24 07:00 05/02/24 07:00 05/02/24 03:14 05/02/24 07:00
Intake and Output
05/01/24 05/02/24 05/03/24
06:59 06:59 06:59
Intake Total 399 / 399 1561.9 / 1561.9
Output Total 2535 / 2535
Balance 399 / 399 -973.1 / -973.1
SaO2 98
Nasal Cannula flow liters per 1
minute
Physical Exam
General: Respiratory Distress (negative), Chills (negative) and Sweats (negative)
HEENT: Normocephalic and Anicteric
Cardiovascular: S1-S2 and Peripheral Edema (negative)
Respiratory: Wheeze (negative), Crackles (negative), Rhonchi (negative), Non-Labored Respirations, Stridor (negative) and Chest Tube (Bilateral chest tubes + mediastinal chest tubes x 2)
GI: Soft, Non Distended, Non Tender and Normal Bowel Sounds
Neurology: AO x 3 and Tremors (negative)
Skin: Warm, Dry, Cyanosis (negative) and Jaundice (negative)
Labs/Micro/Reports
Lab Data
05/02/24 02:21
05/02/24 02:21
Laboratory Results
05/01/24 05/01/24
13:29 16:12
PT 19.5 H
INR 1.62
APTT 32.8
pH 7.43 7.42
pCO2 36 38
pO2 178 H 134 H
HCO3 23.9 24.6
O2 Delivery Level Not Reportable
--- NOTE | 2024-05-02 08:05 | W.PN.ANS.POP ---
Anesthesia Post Operative
- Anesthesia Post Op Note
Vital Signs Stable-See Nursing Note: Yes
Airway Patent: Yes
Adequate Pain Control: Yes
Change in Mental Status: No
Current Postoperative Nausea & Vomiting: No
Anesthesia Complications: No
General Anesthetic Recall: No
Unplanned Admission: No
Post Op Hydration Adequate: Yes
[2024-05-02] MEDS: BACTROBAN 2% OINTMENT 1 APPLIC NASAL ×2 (08:13→20:00)
[2024-05-02] MEDS: ROXICODONE 5 MG PO ×2 (08:13→13:42)
[2024-05-02] MEDS: NEURONTIN 100 MG PO ×3 (08:13→23:01)
[2024-05-02] MEDS: PLAVIX 75 MG PO (08:13)
[2024-05-02] MEDS: PROTONIX 40 MG PO (08:14)
[2024-05-02] MEDS: SENOKOT-S 1 TABLET PO (08:14)
[2024-05-02] MEDS: FEOSOL 325 MG PO (08:14)
[2024-05-02] MEDS: VITAMIN C 500 MG PO (08:14)
[2024-05-02] MEDS: LOW STRENGTH ASPIRIN 81 MG PO (08:14)
[2024-05-02] MEDS: MAGNESIUM OXIDE 500 MG PO ×2 (08:14→20:00)
[2024-05-02] MEDS: LIDOCAINE 4% PATCH 1 PATCH TOPICAL (08:15)
[2024-05-02 08:20] LABS: Glucose - Point of Care 91 mg/dl (70-99)
--- NOTE | 2024-05-02 08:34 | PTCARENOTE ---
Received pt from dog or horse racing official RN; pt AAOx3 and resting comfortably in bed; NSR on monitor and VSS; Levo and Insulin infusing see flow sheet for details; RIJ Cordis/SLIC, Left A-line and PIV x1 patent; Epicardial V wires set to 54/7/2.5 and no pacing
noted; Lungs diminished; IS to 1000; CT x4 to -20 wall suction, no air leak and no crepitus noted; hypoactive bowel sounds; Hull catheter draining yellow urine; palpable pulses throughout; no edema noted; all surgical sites C/D/I; see nursing
documentation for further details.
[2024-05-02 09:58] LABS: Glucose - Point of Care 113 mg/dl (70-99)
--- NOTE | 2024-05-02 10:41 | W.PN.CARDCBS ---
Today's Communication / Plan
-
Remains in sinus rhythm. Had some bradycardia overnight. Continue to hold Amio and metoprolol for today but likely will need to restart tomorrow with his history of PAF.
Continue aspirin and Plavix. Eventually restart full anticoagulation.
EKG with diffuse ST abnormalities and possible pericarditis. Repeat in AM.
No significant chest pains.
Impression / Plan
-
PCP: Dr. Erin Gabriel
Fibrous Wallboard Inspector: Dr. Guzman ([facility] Cardiology)
Impression:
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
s/p CABG x 4 (JOHN to LAD, GSV to D1, GSV to OM, GSV to RPDA), SWAPNA PRESLEY (#35 AtriClip) 05/01/2024
Paroxysmal atrial fibrillation
h/o PE 2021
Chronic coumadin AC
ECG with pericarditis
Echo 04/24/2024 @[facility]: EF 64%, mild MR
Plan:
-Noted crescendo angina as outpatient and had positive stress test, so referred for LHC 04/29/2024. LHC revealed MV CAD with 50% distal left main, 60-70% stenosis of proximal LAD, 80-90% stenosis of ostial circ, and 80% stenosis of mid RCA.
-s/p CABG x4 (JOHN to LAD, GSV to D1, GSV to OM, GSV to RPDA) 05/01/2024. POD#0.
-EKG with some diffuse ST abnormalities and possible pericarditis. No clear rub on exam. Continue to follow clinically. No significant chest pains.
-Remains in sinus. Did have some bradycardia overnight. Now off pressors. Okay to hold amiodarone and beta-moni for now. Likely will need to restart with his paroxysmal atrial fibrillation history.
-Coumadin held pre-op, resume once safe from a surgical standpoint.
-Continue aspirin, plavix.
-LDL 129, new to lipitor 80mg daily.
-Hgb A1c 5.5%
-Continue post op care
Progress Note - Fibrous Wallboard Inspector
Subjective
Date of Service: May 02, 2024
Remains in sinus rhythm. Denies chest pains/sob.
Objective
Labs:
05/02/24 02:21
05/02/24 02:21
Labs
Hgb 10.1 g/dL (13.0-18.0) L 05/02/24 02:21
Hct 28.9 % (39.0-52.0) L 05/02/24 02:21
Plt Count 181 10^3/uL (130-400) 05/02/24 02:21
PT 19.5 Sec (11.4-14.6) H 05/01/24 13:29
INR 1.62 05/01/24 13:29
APTT 32.8 Sec (23.4-35.0) 05/01/24 13:29
Sodium 137 mmol/L (135-145) 05/02/24 02:21
Potassium 4.0 mmol/L (3.5-5.1) 05/02/24 02:21
BUN 23 mg/dl (9-20) H 05/02/24 02:21
Creatinine 1.0 mg/dL (0.7-1.3) 05/02/24 02:21
Glucose 98 mg/dl (70-99) 05/02/24 02:21
Vital Signs and I&O:
Vital Signs
Temp Pulse Resp BP Pulse Ox
98.3 F 63 19 96/61 97
05/02/24 09:59 05/02/24 10:00 05/02/24 10:00 05/02/24 08:20 05/02/24 10:00
Vital Signs
Temp Pulse Resp BP Pulse Ox
98.3 F 63 19 96/61 97
05/02/24 09:59 05/02/24 10:00 05/02/24 10:00 05/02/24 08:20 05/02/24 10:00
Intake & Output
04/30/24 05/01/24 05/02/24 05/03/24
06:59 06:59 06:59 06:59
Intake Total 101 / 101 399 / 399 1561.9 / 1561.9 71.0 / 71.0
Output Total 2535 / 2535 140 / 140
Balance 101 / 101 399 / 399 -973.1 / -973.1 -69.0 / -69.0
Physical Exam
Physical Exam
GEN: No distress, awake, Ox3
HEENT: supple, anicteric, mmm
LUNGS: CTA, no wheezes/rales
CV: Reg, S1/S2, 1/6 syst LSB, no rub
ABD: soft, BS+, NT/ND
EXT: No edema
NEURO: Gross non-focal
SKIN: sternotomy
[2024-05-02] MEDS: LASIX 40 MG IV (11:32)
[2024-05-02] MEDS: KCL 20 MEQ PO (11:32)
--- NOTE | 2024-05-02 11:36 | PTCARENOTE ---
A-line and SLIC removed per order; Pt OOB x1 to chair with RN; NSR on monitor and VSS; Insulin infusing see flow sheet for details; at bedside and updated.
[2024-05-02 12:14] LABS: Glucose - Point of Care 100 mg/dl (70-99)
[2024-05-02] MEDS: NSS IV (13:30)
--- NOTE | 2024-05-02 13:37 | PTCARENOTE ---
Hull catheter discontinue per order.
[2024-05-02 14:05] LABS: Glucose - Point of Care 111 mg/dl (70-99)
--- NOTE | 2024-05-02 14:09 | PTCARENOTE ---
Insulin drip discontinued.
--- NOTE | 2024-05-02 15:02 | PTCARENOTE ---
Assessment unchanged; NSR on monitor and VSS: pt back to bed with RN; inappropriately pacing on monitor, A. Long CVPA at bedside and setting changed to VVI currently no pacing noted; pt resting comfortably in bed.
--- NOTE | 2024-05-02 15:53 | PTCARENOTE ---
HR on monitor 35, Epicardial V wires pacing; per CVPA changed Epicardial pacing to VVI 60, currently 100% V paced on monitor and VSS; updated family on plan.
[2024-05-02] MEDS: LIPITOR 80 MG PO (17:00)
--- NOTE | 2024-05-02 20:18 | PTCARENOTE ---
Assumed care of patient at 1900. Patient found resting in bed at time of assessment. Patient is AOx4, follows commands appropriately, moves all extremities, patient is ST. CROIX wears b/l HSU. Lung sounds are diminished in the bases, saO2 96% on RA, CTx4:
R/L pleural to one atrium and 2xmeds to one atrium. Heart sounds are audible, there is a rub present on auscultation, patient has normal palpable pulses and no observable edema. Patient has v wires with VVI settings 60/7/1.0. On the monitor patient
is currently in SR with PACs occasional v paced beat. Patient has active BS throughout all four quadrants and is currently DTV following barahona removal. There is a sternal incision with aquacell dressing small amount of old drainage present has not
increased since previous assessment, R groin puncture approx with surg adhesive ANATOMIC PATHOLOGY MANAGER, RLE incision approx with surg adhesive COLEEN, and L elbow abrasion with silicone border foam CDI. There is a R IJ cordis receiving KVO and L FA PIV 20G available for
intermittent infusion. Patient c/o moderate pain given Zainab 5 per parameters. No other complaints at this time. Call de within reach.
--- NOTE | 2024-05-02 22:00 | PTCARENOTE ---
At approx 2100 while assisting patient on side of bed to attempt void patient entered 100% paced rhythm. Became diaphoretic, lightheaded. Blood pressure 89/57 on assessment. Returned to bed. Patient spontaneously resumed SR HR in mid 60s at 2113. BP
100/70 all symptoms resolved.
[2024-05-03] VITALS (18 sets, daily range): BP systolic 82–135; BP diastolic 37–70; BMI 24.7
--- NOTE | 2024-05-03 | PTCARENOTE ---
Patient reassessed. Patient with 88% saO2 at 2300 while sleeping placed on 2L for the night saO2 improved to 97%. Remains SR with PACs occasional v pacing no further sustained v pacing from previous episode. Call de within reach.
--- NOTE | 2024-05-03 02:39 | PTCARENOTE ---
At 0225 patient hit call button with request to attempt BM. When assisting patient to side of bed reentered 100% paced rhythm became lightheaded, dizzy. BP 82/60 on assessment. Patient returned to bed. Patient resumed SR shortly after returning to
bed HR in 70s. BP 122/61 on reassessment. Patient's symptoms resolved. Patient placed on bedpan to attempt BM. CT TIRE WORKER notified.
[2024-05-03 04:14] LABS: Hematocrit 28.4 % (39.0-52.0); Hemoglobin 9.8 g/dL (13.0-18.0); Mean Corp Hgb Conc. 34.5 g/dL (33.0-37.0); Mean Corpuscular Volume 95.6 fL (80.0-94.0); Mean Platelet Volume 10.5 fL (7.4-10.4); Platelet Count 128 10^3/uL (130-400); Red Blood Cell Count 2.97 10^6/uL (4.70-6.10); Red Cell Dist. Width 12.9 % (11.5-14.5); White Blood Cell Count 7.1 10^3/uL (4.8-10.8)
[2024-05-03 04:16] LABS: Blood Urea Nitrogen 27 mg/dl (9-20); Calcium 7.6 mg/dl (8.4-10.2); Carbon Dioxide 28 mmol/L (22-30); Chloride 98 mmol/L (98-107); Estimated Creatinine Clearance 57 ml/min; Glucose 131 mg/dl (70-99); Magnesium 1.9 mg/dl (1.6-2.3); Potassium 4.5 mmol/L (3.5-5.1); Sodium 132 mmol/L (135-145); eGFR > 60.00
--- NOTE | 2024-05-03 05:05 | W.PN.CT ---
Today's Communication / Plan
-
-continues to need intermittent pacing, two significant episodes overnight: once when he sat up to urinate and he was 100% paced for ~2 min with slight drop in BP, another episode where he was 100% paced when he tried to have a BM and became
diaphoretic. Recovered after ~2 min each time.
-still reports feeling pacer firing but reports it as 'tolerable'
-CT outputs: 2 meds 55/155, 2 pleur 50/110 in 12/24 hrs
-abnormal ECG, ? pericarditis/+ rub, following EKG
-current meds (ASA, Plavix, Lipitor, Protonix, Feosol). Holding BB and Amio d/t bradycardia. Eventually restarting Coumadin
-pain controlled with multimodal strategy
-IS/OOB/ambulate if able given pacing need
Assessment / Plan
-
- Mv-CAD - s/p CABG x 4 (JOHN to LAD, GSV to D1, GSV to OM, GSV to RPDA); [facility] MAZE procedure; ELAA (#35 AtriClip) by Dr. Bolton on 05/01/24, pod #2
- Hx PE 2021
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
- Thoracic aneurysm 4.2 cm
- HTN/ HLD
- Acute postop blood loss anemia- stable, no transfusion
- Acute postop thrombocytopenia - stable
- Acute postop bradycardia, requiring pacing @40
- Acute postop atelectasis
- Acute postop suspected pericarditis/+ rub
- Acute postop hypovolemia with subsequent hypervolemia
Subjective
Procedure
s/p CABG x 4 (JOHN to LAD, GSV to D1, GSV to OM, GSV to RPDA); Encompass MAZE procedure; ELAA (#35 AtriClip) by Dr. Bolton on 05/01/24
-
Date of Service: May 03, 2024
Objective Data
-
Lab Results
05/03/24 03:37
05/03/24 03:37
PT 19.5 Sec (11.4-14.6) H 05/01/24 13:29
INR 1.62 05/01/24 13:29
APTT 32.8 Sec (23.4-35.0) 05/01/24 13:29
Vital Signs
Vital Signs
Temp Pulse Resp BP Pulse Ox
98.0 F 64 14 103/58 96
05/02/24 23:00 05/03/24 04:45 05/02/24 23:00 05/03/24 04:00 05/03/24 04:45
CT Intake/Output/Weight
05/02/24 05/02/24 05/03/24
06:59 18:59 06:59
Intake Total 252.8 / 1561.9 158.2 / 168.2 10 / 168.2
Output Total 695 / 2535 1005 / 1235 230 / 1235
Balance -442.2 / -973.1 -846.8 / -1066.8 -220 / -1066.8
SaO2: 96
Physical Exam
-
General: Awake and Oriented
Cardiovascular: Regular rate & rhythm, No Murmurs and Rub
Respiratory: Clear and Equal
Sternum: Stable
Incision: Clean, Dry and Intact
Extremities: No Edema
Data Reviewed
-
Lab Results: Results Reviewed
Medications: Active Meds Reviewed
Chest X-Ray: Report Reviewed
ECG: Report Reviewed
[2024-05-03] MEDS: TYLENOL 1000 MG PO ×3 (06:34→21:03)
--- NOTE | 2024-05-03 06:50 | PTCARENOTE ---
Patient reassessed. VSS. Remains SR with PAC and occasional v pacing. AM labs obtained. AM hygiene care provided. Patient tolerated getting oob this AM, successful void, to chair without incident.
[2024-05-03] MEDS: PLAVIX 75 MG PO (07:53)
[2024-05-03] MEDS: PROTONIX 40 MG PO (07:53)
[2024-05-03] MEDS: LOW STRENGTH ASPIRIN 81 MG PO (07:53)
[2024-05-03] MEDS: MAGNESIUM OXIDE 500 MG PO ×2 (07:53→19:18)
[2024-05-03] MEDS: LIDOCAINE 4% PATCH TOPICAL (07:53)
[2024-05-03] MEDS: VITAMIN C 500 MG PO (07:53)
[2024-05-03] MEDS: FEOSOL 325 MG PO (07:53)
[2024-05-03] MEDS: NEURONTIN 100 MG PO ×3 (07:53→21:03)
[2024-05-03] MEDS: SENOKOT-S 1 TABLET PO ×2 (07:53→19:18)
[2024-05-03] MEDS: BACTROBAN 2% OINTMENT 1 APPLIC NASAL ×2 (07:53→19:19)
--- NOTE | 2024-05-03 08:02 | W.PN.CARDCBS ---
Addendum entered and electronically signed by Ervin Garcia DO 05/03/24 20:08:
.
Discussed with EP, possible PPM tomorrow.
Original Note:
Today's Communication / Plan
-
-EKG with sinus with some V pacing
-Remains in sinus. Did have some bradycardia overnight and 05/01 mid day with need for pacing after short pauses.
Amiodarone and beta moni are held for now
He does have baseline sinus bradycardia however he may require permanent pacing if he continues to have pauses.
Lowered base rate of pacer to 50 as he had sinus bradycardia at 50 preoperatively.
Will likely need to resume amiodarone and beta-moni therapy soon given his history of paroxysmal atrial fibrillation.
-Coumadin held pre-op, resume once safe from a surgical standpoint, and no further procedures planned.
-Continue aspirin, plavix.
-LDL 129, new to lipitor 80mg daily.
-Hgb A1c 5.5%
-Continue post op care
Impression / Plan
-
.
PCP: Dr. Erin Gabriel
Insurance Clerk: Dr. Guzman ([facility] Cardiology)
Impression:
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
s/p CABG x 4 (JOHN to LAD, GSV to D1, GSV to OM, GSV to RPDA), MAZE, ELAA (#35 AtriClip) 05/01/2024
Paroxysmal atrial fibrillation
h/o PE 2021
Chronic coumadin AC
ECG with pericarditis
Echo 04/24/2024 @[facility]: EF 64%, mild MR
Plan:
-Noted crescendo angina as outpatient and had positive stress test, so referred for LHC 04/29/2024. LHC revealed MV CAD with 50% distal left main, 60-70% stenosis of proximal LAD, 80-90% stenosis of ostial circ, and 80% stenosis of mid RCA.
-s/p CABG x4 (JOHN to LAD, GSV to D1, GSV to OM, GSV to RPDA) 05/01/2024.
-EKG with sinus with some V pacing
-Remains in sinus. Did have some bradycardia overnight and 05/01 mid day with need for pacing after short pauses.
Amiodarone and beta moni are held for now
He does have baseline sinus bradycardia however he may require permanent pacing if he continues to have pauses.
Lowered base rate of pacer to 50 as he had sinus bradycardia at 50 preoperatively.
Will likely need to resume amiodarone and beta-moni therapy soon given his history of paroxysmal atrial fibrillation.
-Coumadin held pre-op, resume once safe from a surgical standpoint, and no further procedures planned.
-Continue aspirin, plavix.
-LDL 129, new to lipitor 80mg daily.
-Hgb A1c 5.5%
-Continue post op care
-Chest tube care as per CT surgery
Discussed with nursing.
Progress Note - Insurance Clerk
Subjective
Date of Service: May 03, 2024
Patient seen and examined. No chest pain or shortness of breath.
Objective
Labs:
05/03/24 03:37
05/03/24 03:37
Labs
Hgb 9.8 g/dL (13.0-18.0) L 05/03/24 03:37
Hct 28.4 % (39.0-52.0) L 05/03/24 03:37
Plt Count 128 10^3/uL (130-400) L D 05/03/24 03:37
PT 19.5 Sec (11.4-14.6) H 05/01/24 13:29
INR 1.62 05/01/24 13:29
APTT 32.8 Sec (23.4-35.0) 05/01/24 13:29
Sodium 132 mmol/L (135-145) L 05/03/24 03:37
Potassium 4.5 mmol/L (3.5-5.1) 05/03/24 03:37
BUN 27 mg/dl (9-20) H 05/03/24 03:37
Creatinine 1.1 mg/dL (0.7-1.3) 05/03/24 03:37
Glucose 131 mg/dl (70-99) H 05/03/24 03:37
Vital Signs and I&O:
Vital Signs
Temp Pulse Resp BP Pulse Ox
98.2 F 65 16 114/60 96
05/03/24 03:00 05/03/24 06:30 05/03/24 03:00 05/03/24 06:25 05/03/24 05:30
Vital Signs
Temp Pulse Resp BP Pulse Ox
98.2 F 65 16 114/60 96
05/03/24 03:00 05/03/24 06:30 05/03/24 03:00 05/03/24 06:25 05/03/24 05:30
Intake & Output
05/01/24 05/02/24 05/03/24 05/04/24
06:59 06:59 06:59 06:59
Intake Total 399 / 399 1561.9 / 1561.9 168.2 / 168.2
Output Total 2535 / 2535 1615 / 1615
Balance 399 / 399 -973.1 / -973.1 -1446.8 / -1446.8
Physical Exam
Physical Exam
General: No acute distress, AAOX3
Neck: Negative JVD
Heart: Regular, Negative S3 positive S1/S2, Negative S4, No murmur
Lungs: CTA b/l, negative wheezes/rales/rhonchi
Thorax: Chest tubes in place
Abd: Positive BS, NT/ND, neg rebound/rigidity/guarding
Ext: Negative cyanosis/clubbing/edema
Neuro: nonfocal
--- NOTE | 2024-05-03 08:06 | PTCARENOTE ---
Received pt from fast food shift supervisor RN; pt AAOx3 and resting comfortably in chair; NSR on monitor and VSS; Epicardial V wire set to VVI 60/7/1 and occasional pacing noted on monitor; + rub; lungs diminished; CT x4 to -20 wall suction no air leak and no
crepitus noted; hypoactive bowel sounds; pt voiding yellow urine; palpable pulses throughout; no edema noted; all surgical sites C/D/I; see nursing documentation for further details.
Dr Garcia at bedside and Epicardial V wire settings changed to VVI 50/7/1.
[2024-05-03] MEDS: ZOFRAN 4 MG IV (08:54)
--- NOTE | 2024-05-03 09:38 | PTCARENOTE ---
CT x4 removed per CVPA order; pt resting comfortably in bed.
--- NOTE | 2024-05-03 12:00 | PTCARENOTE ---
Assessment unchanged; Sinus Bradycardia/NSR on monitor and VSS; pt ambulated in room with RN; cardiac rehab exercises performed by pt in chair; pt resting comfortably in chair and waiting lunch.
--- NOTE | 2024-05-03 16:36 | PTCARENOTE ---
Assessment unchanged; NSR on monitor and VSS: pt ambulated in room with RN; pt resting comfortably in chair with family at bedside.
[2024-05-03] MEDS: LIPITOR 80 MG PO (17:04)
[2024-05-03] MEDS: MYLICON 80 MG PO (17:25)
[2024-05-03] MEDS: NSS 500 IV (19:18)
--- NOTE | 2024-05-03 20:00 | PTCARENOTE ---
Received pt from [facility]. pt resting comfortably in chair. NSR on monitor. VSS. pt assisted up to bathroom and back to bed. pt denies pain. Pt is AAOX4, [place] with b/l hearing aids. heart sounds audible, rub audible, radial and DP pulses palpable, no
edema noted, temp epicardial v-wires set to VVI rate of 50, MA of 7, and MV of 1. lung sounds clear, diminished at b/l bases, spo2 97% on RA. +BS x4 quadrants, abdomen soft non tender, pt states he has a poor appetite, pt will be NPO at midnight. pt
voiding clear yellow urine without difficulty. surgical sites maintained. right IJ cordis and PIV maintained. pt washed with CHG wipes, new leads and gown provided. call de within reach. will continue to monitor.
[2024-05-04] VITALS (10 sets, daily range): BP systolic 90–136; BP diastolic 51–90; PULSE 62; O2SAT 98–99; BMI 24.3
--- NOTE | 2024-05-04 | PTCARENOTE ---
Pt assessment unchanged. Pt resting comfortably in bed. NSR with PACs on monitor, VSS. 2gs of Mag IVPB ordered. call de within reach will continue to monitor.
[2024-05-04] MEDS: MAGNESIUM SULFATE 50 IV (00:31)
[2024-05-04 03:45] LABS: Hematocrit 28.5 % (39.0-52.0); Hemoglobin 9.9 g/dL (13.0-18.0); Mean Corp Hgb Conc. 34.7 g/dL (33.0-37.0); Mean Corpuscular Hgb 33.3 pg (27.0-31.0); Mean Platelet Volume 10.7 fL (7.4-10.4); Platelet Count 145 10^3/uL (130-400); Red Blood Cell Count 2.97 10^6/uL (4.70-6.10); Red Cell Dist. Width 12.6 % (11.5-14.5); White Blood Cell Count 6.9 10^3/uL (4.8-10.8)
--- NOTE | 2024-05-04 04:00 | PTCARENOTE ---
Pt had large dark tarry BM. occult test negative for blood. pt assisted back to bed. AM labs drawn and sent. will continue to monitor.
[2024-05-04 04:07] LABS: Blood Urea Nitrogen 23 mg/dl (9-20); Calcium 7.8 mg/dl (8.4-10.2); Carbon Dioxide 27 mmol/L (22-30); Chloride 98 mmol/L (98-107); Estimated Creatinine Clearance 70 ml/min; Glucose 119 mg/dl (70-99); Magnesium 3.6 mg/dl (1.6-2.3); Potassium 4.6 mmol/L (3.5-5.1); Sodium 133 mmol/L (135-145); eGFR > 60.00
--- NOTE | 2024-05-04 06:02 | W.PN.CT ---
Today's Communication / Plan
-
-pacer requirement down significantly. Now starting to get very frequent PACs and PAT bursts. Intrinsic rate remains in the 50s to low 60s. NPO for this morning for possible PPM.
-CTs out
-current meds (ASA, Plavix, Lipitor, Protonix, Feosol). Holding BB and Amio d/t bradycardia. Eventually restarting Coumadin, timing to be determined
-pain controlled with multimodal strategy
-IS/OOB/ambulate
Assessment / Plan
-
- Mv-CAD - s/p CABG x 4 (JOHN to LAD, GSV to D1, GSV to OM, GSV to RPDA); Encompass MAZE procedure; ELAA (#35 AtriClip) by Dr. Bolton on 05/01/24, pod #3
- Hx PE 2021
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
- Thoracic aneurysm 4.2 cm
- HTN/ HLD
- Acute postop blood loss anemia- stable, no transfusion
- Acute postop thrombocytopenia - stable
- Acute postop bradycardia, requiring pacing @40
- Acute postop atelectasis
- Acute postop suspected pericarditis/+ rub
- Acute postop hypovolemia with subsequent hypervolemia
Subjective
Procedure
s/p CABG x 4 (JOHN to LAD, GSV to D1, GSV to OM, GSV to RPDA); Encompass MAZE procedure; ELAA (#35 AtriClip) by Dr. Bolton on 05/01/24
-
Date of Service: May 04, 2024
Objective Data
-
Lab Results
05/04/24 03:28
05/04/24 03:28
PT 19.5 Sec (11.4-14.6) H 05/01/24 13:29
INR 1.62 05/01/24 13:29
APTT 32.8 Sec (23.4-35.0) 05/01/24 13:29
Vital Signs
Vital Signs
Temp Pulse Resp BP Pulse Ox
98.1 F 60 16 100/51 94
05/04/24 04:00 05/04/24 01:45 05/04/24 04:00 05/04/24 00:01 05/04/24 04:00
CT Intake/Output/Weight
05/03/24 05/03/24 05/04/24
06:59 18:59 06:59
Intake Total 10 / 168.2 120 / 120
Output Total 610 / 1615 540 / 1340 800 / 1340
Balance -600 / -1446.8 -420 / -1220 -800 / -1220
SaO2: 94
Physical Exam
-
General: Awake, Oriented and AOx3
Cardiovascular: Regular rate & rhythm, No Murmurs and No Rub
Respiratory: Clear and Equal
Sternum: Stable
Incision: Clean, Dry and Intact
Extremities: No Edema
Data Reviewed
-
Lab Results: Results Reviewed
Medications: Active Meds Reviewed
Chest X-Ray: Report Reviewed
ECG: Report Reviewed
[2024-05-04] MEDS: TYLENOL 1000 MG PO ×2 (06:30→21:46)
--- NOTE | 2024-05-04 07:53 | PTCARENOTE ---
assumed care of pt from previous shift RN, sinus rhythm on tele w HR 60's, epicardial pacing wire set to a backup 50/7, + peripheral pulses, no edema noted. Lungs diminished, pox 97% on RA. +bs, tolerating PO intake, voids spontaneously. Right IJ
cordis w KVO infusing, PIV flushes easily. Surgical sites stable. pt denies pain. Plan of care reviewed and questions encouraged.
[2024-05-04] MEDS: MAGNESIUM OXIDE PO (09:27)
[2024-05-04] MEDS: FEOSOL 325 MG PO (10:56)
[2024-05-04] MEDS: PLAVIX 75 MG PO (10:56)
[2024-05-04] MEDS: VITAMIN C 500 MG PO (10:56)
[2024-05-04] MEDS: NEURONTIN 100 MG PO ×3 (10:56→21:46)
[2024-05-04] MEDS: LOW STRENGTH ASPIRIN 81 MG PO (10:56)
[2024-05-04] MEDS: SENOKOT-S 1 TABLET PO (10:56)
[2024-05-04] MEDS: BACTROBAN 2% OINTMENT 1 APPLIC NASAL ×2 (10:56→19:59)
[2024-05-04] MEDS: PROTONIX 40 MG PO (10:56)
[2024-05-04] MEDS: LIDOCAINE 4% PATCH TOPICAL (10:57)
--- NOTE | 2024-05-04 11:28 | CM ---
Chart reviewed. Patient is independent of ADLS, lives with his in a 2 STH, 0 HANY, 0 DME. Plan is for the patient to return home with CT Transitional RN. CM to follow
[2024-05-04] MEDS: LASIX 40 MG IV (12:29)
--- NOTE | 2024-05-04 12:48 | PTCARENOTE ---
VSS, sinus rhythm on tele w HR 60's. pt denies pain. PPM on hold at this time.
[2024-05-04] MEDS: TYLENOL PO (14:25)
[2024-05-04] MEDS: NSS IV (14:25)
[2024-05-04] MEDS: LIPITOR 80 MG PO (17:13)
[2024-05-04] MEDS: SENOKOT-S PO (20:00)
--- NOTE | 2024-05-04 20:30 | PTCARENOTE ---
Assumed care of pt from dayshift RN. Walking rounds completed. Pt AAOx3. BRUCE. SR on the tele monitor. HR 60s. Temporary epicardial v-wire insulated w/ box and wire easily accessible. BP stable. Palpable pulses. No edema. Pt 97% on RA. Lung sounds
diminished. Deep breathing and IS encouraged. Abdomen soft/nontender. +BSx4. Pt voiding yellow urine w/o issue. All surgical sites stable. Stand by assist. Pt assisted out of the chair and into bed. No c/p pain at this time. See worklist for full
nursing assessment and interventions. Call de within reach.
[2024-05-04] MEDS: KCL 20 MEQ PO (21:46)
--- NOTE | 2024-05-04 23:44 | PTCARENOTE ---
No acute change in assessment. Pt SR to sinus lorena on the tele monitor w/ PACs. HR 60-70s. BP stable. Pt 96% on RA. Resting comfortably in bed. No c/o pain at this time. Call de within reach.
[2024-05-05] VITALS (13 sets, daily range): BP systolic 99–128; BP diastolic 56–84; PULSE 65–70; O2SAT 96–100; BMI 23.6
--- NOTE | 2024-05-05 02:17 | W.PN.CT ---
Today's Communication / Plan
-
Plan:
-No major issues overnight. Hemodynamically and neurologically intact
-No significant bradycardia, no pauses overnight. HR 58-62 bpm, sinus with occasional PAC's overnight
-Holding Amiodarone and BB
-Cardiology/EP following, no need for PPM for now, plan is likely home with RhythmStar monitor
-Consider resumption of Coumadin today, f/u INR
-Cont. current meds (ASA, Plavix-will d/c after INR >/= 1.6, Lipitor, Protonix)
-F/U 2-view cxr
-Consider d/c of cordis
-Hyponatremia has resolved, 135, was 133 yesterday. Fluid restriction, diuresis today with Diamox (CO2 31), replete K
-Thrombocytopenia has resolved, 128-> 145-> 171K
-OOB into chair/Ambulate
-Monitoring rhythm another day per Cards
-Will likely cut temporary PW tomorrow
-Likely home tomorrow with RhythmStar heart monitor
Assessment / Plan
-
- Mv-CAD - s/p CABG x 4 (JOHN to LAD, GSV to D1, GSV to OM, GSV to RPDA); Encompass MAZE procedure; ELAA (#35 AtriClip) by Dr. Bolton on 05/01/24, pod #4
- Hx PE 2021
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
- Thoracic aneurysm 4.2 cm
- HTN/ HLD
- Acute postop blood loss anemia- stable, no transfusion
- Acute postop thrombocytopenia - stable
- Acute postop bradycardia with pauses, requiring pacing @40
- Acute postop atelectasis
- Acute postop suspected pericarditis/+ rub
- Acute postop hypovolemia with subsequent hypervolemia
Discussed patient care with: Cardiology, Nursing, Respiratory Therapy, Pharmacy and Care Team
Subjective
Procedure
s/p CABG x 4 (JOHN to LAD, GSV to D1, GSV to OM, GSV to RPDA); Encompass MAZE procedure; SWAPNA (#35 AtriClip) by Dr. Bolton on 05/01/24
-
Date of Service: May 05, 2024
Pt c/o mild incisional pain, otherwise feels well
Objective Data
-
PT 19.5 Sec (11.4-14.6) H 05/01/24 13:29
INR 1.62 05/01/24 13:29
APTT 32.8 Sec (23.4-35.0) 05/01/24 13:29
Vital Signs
Vital Signs
Temp Pulse Resp BP Pulse Ox
97.9 F 61 20 98/60 96
05/04/24 23:28 05/04/24 23:00 05/04/24 23:28 05/04/24 23:28 05/04/24 23:30
CT Intake/Output/Weight
05/04/24 05/04/24 05/05/24
06:59 18:59 06:59
Intake Total 60 / 110 50 / 110
Output Total 800 / 1340 1025 / 1225 200 / 1225
Balance -800 / -1220 -965 / -1115 -150 / -1115
SaO2: 96 (RA)
Physical Exam
-
General: Awake, Oriented and AOx3
Cardiovascular: No Murmurs, No Rub and No Gallop
Respiratory: Decreased Breath Sounds (at bases, otherwise clear)
Sternum: Stable
Incision: Clean, Dry, Intact and Dressing Intact
Extremities: Edema +1 (RLE)
Data Reviewed
-
Lab Results: Results Reviewed
Medications: Active Meds Reviewed
Chest X-Ray: Report Reviewed and Image Reviewed
ECG: Report Reviewed and Image Reviewed
[2024-05-05 02:59] LABS: Hematocrit 27.7 % (39.0-52.0); Hemoglobin 9.7 g/dL (13.0-18.0); Mean Corpuscular Hgb 33.7 pg (27.0-31.0); Mean Corpuscular Volume 96.2 fL (80.0-94.0); Mean Platelet Volume 10.2 fL (7.4-10.4); Platelet Count 171 10^3/uL (130-400); Red Blood Cell Count 2.88 10^6/uL (4.70-6.10); Red Cell Dist. Width 12.6 % (11.5-14.5); White Blood Cell Count 6.3 10^3/uL (4.8-10.8)
--- NOTE | 2024-05-05 03:17 | PTCARENOTE ---
Pt reassessed. No acute change in assessment. SR to sinus lorena on the tele monitor w/ PACs. HR 50-70s. BP stable. Pt 94% on RA. Pt assisted OOB to void and then repositioned back into bed. Weight/labs/EKG completed. Denies pain at this time. All
surgical sites stable. Call de within reach.
[2024-05-05 03:27] LABS: Blood Urea Nitrogen 25 mg/dl (9-20); Calcium 7.6 mg/dl (8.4-10.2); Carbon Dioxide 31 mmol/L (22-30); Chloride 97 mmol/L (98-107); Estimated Creatinine Clearance 63 ml/min; Glucose 105 mg/dl (70-99); Magnesium 2.4 mg/dl (1.6-2.3); Potassium 4.1 mmol/L (3.5-5.1); Sodium 135 mmol/L (135-145); eGFR > 60.00
[2024-05-05] MEDS: NSS 500 IV (05:23)
[2024-05-05] MEDS: CALCIUM GLUCONATE 100 IV (05:23)
[2024-05-05] MEDS: TYLENOL 1000 MG PO ×2 (07:22→21:28)
--- NOTE | 2024-05-05 08:28 | PTCARENOTE ---
Patient received from housekeeping manager resting in bed, AAO X 3, states pain controlled at this time. NSR via cm, SaO2 @ 96% on RA. RIJ Cordis w/kvo infusing. Assisted oob to chair, voided to urinal. Patient updated to plan of care for the day, in
agreement. See work list for full assessment and interventions performed.
[2024-05-05] MEDS: LIDOCAINE 4% PATCH TOPICAL (08:31)
[2024-05-05 08:42] LABS: INR 0.99; PT 13.4 Sec (11.4-14.6)
--- NOTE | 2024-05-05 08:44 | W.PN.CARDCBS ---
Addendum entered and electronically signed by Kofi Mccord MD 05/05/24 09:34:
I saw and examined the patient.
The STAGING TECHNICIAN or PA's note was reviewed and I agree with the note.
Comment: General: Well developed, well nourished in NAD.
Neck: Supple, no JVD, HJR, carotids +2 B/L, no bruits bilaterally.
Heart: Non displaced PMI, RRR, no murmurs, No S3, S4, no rubs.
Lungs: Scattered rhonchi
Sternal dressings noted
Extremities: No clubbing, cyanosis or edema bilaterally.
Neuro: Grossly nonfocal, awake, alert and oriented x3.
Stable cardiology status status post CABG. No further heart block. Discussed with CT surgery.
Original Note:
Today's Communication / Plan
-
follow rhythm
continue post op care
Impression / Plan
-
.
PCP: Dr. Erin Gabriel
Rail Doweling Machine Operator: Dr. Guzman ([facility] Cardiology)
Impression:
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
s/p CABG x 4 (JOHN to LAD, GSV to D1, GSV to OM, GSV to RPDA), MAZE, ELAA (#35 AtriClip) 05/01/2024
Post op bradycardia/pauses
Paroxysmal atrial fibrillation
h/o PE 2021
Chronic coumadin AC
ECG with pericarditis
Echo 04/24/2024 @[facility]: EF 64%, mild MR
Plan:
-s/p CABG x4 JOHN to LAD, GSV to D1, GSV to OM, GSV to RPDA 05/01/2024.
-tele from 05/04 with bradycardia as well as intermittent need for pacing d/t short pauses. amio/BB on hold. he does have baseline bradycardia. not felt to need PPM as of 05/04 per EP. no pauses overnight. plan for 2 week rhythm star monitor upon DC.
he does have history of PAF, and with several brief runs overnight on review of tele. will follow rhythm overnight. was on toprol 50mg QPM prior to admission.
-likely resuming OP coumadin today. hgb 9.7. INR pending. continue asa, plavix until INR>/= 1.6
-LDL 129, new to lipitor 80mg daily.
-Hgb A1c 5.5%
-Continue post op care
-Discussed with nursing, CT surgery.
Progress Note - Rail Doweling Machine Operator
Subjective
Date of Service: May 05, 2024
reports some post prandial nausea.
Objective
Labs:
05/05/24 02:44
05/05/24 02:44
Labs
Hgb 9.7 g/dL (13.0-18.0) L 05/05/24 02:44
Hct 27.7 % (39.0-52.0) L 05/05/24 02:44
Plt Count 171 10^3/uL (130-400) 05/05/24 02:44
PT 19.5 Sec (11.4-14.6) H 05/01/24 13:29
INR 1.62 05/01/24 13:29
APTT 32.8 Sec (23.4-35.0) 05/01/24 13:29
Sodium 135 mmol/L (135-145) 05/05/24 02:44
Potassium 4.1 mmol/L (3.5-5.1) 05/05/24 02:44
BUN 25 mg/dl (9-20) H 05/05/24 02:44
Creatinine 1.0 mg/dL (0.7-1.3) 05/05/24 02:44
Glucose 105 mg/dl (70-99) H 05/05/24 02:44
Vital Signs and I&O:
Vital Signs
Temp Pulse Resp BP Pulse Ox
97.9 F 63 17 105/61 96
05/05/24 07:38 05/05/24 08:10 05/05/24 07:38 05/05/24 07:22 05/05/24 08:14
Vital Signs
Temp Pulse Resp BP Pulse Ox
97.9 F 63 17 105/61 96
05/05/24 07:38 05/05/24 08:10 05/05/24 07:38 05/05/24 07:22 05/05/24 08:14
Intake & Output
05/03/24 05/04/24 05/05/24 05/06/24
07:59 07:59 07:59 07:59
Intake Total 168.2 / 208.2 180 / 180 120 / 120 260 / 260
Output Total 1615 / 1635 1340 / 1340 1875 / 1875
Balance -1446.8 / -1426.8 -1160 / -1160 -1755 / -1755 260 / 260
Physical Exam
Physical Exam
GEN: No distress, awake, alert, oriented x3. sitting in chair
HEENT: supple, anicteric, mmm, eomi
LUNGS: CTA B/L, no wheezes
CV: Reg, S1/S2, no murmur
EXT: No cyanosis, clubbing, edema
NEURO: Gross non-focal
SKIN: Warm, pink, dry. No rash. Sternotomy dressing c/d/i.
[2024-05-05] MEDS: BACTROBAN 2% OINTMENT 1 APPLIC NASAL (08:49)
[2024-05-05] MEDS: DIAMOX 250 MG PO (08:49)
[2024-05-05] MEDS: LASIX 40 MG PO (08:50)
[2024-05-05] MEDS: PROTONIX 40 MG PO (08:50)
[2024-05-05] MEDS: VITAMIN C 500 MG PO (08:50)
[2024-05-05] MEDS: NEURONTIN 100 MG PO ×3 (08:51→21:28)
[2024-05-05] MEDS: FEOSOL 325 MG PO (08:51)
[2024-05-05] MEDS: PLAVIX 75 MG PO (08:51)
[2024-05-05] MEDS: LOW STRENGTH ASPIRIN 81 MG PO (08:51)
[2024-05-05] MEDS: SENOKOT-S PO ×2 (08:51→20:03)
[2024-05-05] MEDS: KCL 20 MEQ PO (09:23)
--- NOTE | 2024-05-05 11:40 | PTCARENOTE ---
VS obtained, assessment stable. Patient oob in chair, visiting. Ordering lunch.
[2024-05-05] MEDS: TYLENOL 500 MG PO (13:43)
--- NOTE | 2024-05-05 15:50 | PTCARENOTE ---
VS obtained, patient resting comfortably oob in chair. Visitor bedside. States pain controlled at this time.
[2024-05-05] MEDS: LIPITOR 80 MG PO (18:42)
--- NOTE | 2024-05-05 20:45 | PTCARENOTE ---
Assumed care of patient from dayshift RN. Walking rounds completed. Pt AAOx3. SR w/ occasional PACs. HR 60-70s. Temporary epicardial v-wire intact and insulated. BP 111/71. Palpable pulses. Lung sounds decreased B/L. Pt 98% on RA. Deep breathing and
IS encouraged. Abdomen soft. +BSx4. Pt voiding spontaneously. +BM. Right IJ cordis and PIV C/D/I. All surgical sites stable. Pt assisted w/ walk around unit. No dizziness. Denies pain at this time. See worklist for full nursing assessment and
interventions. Call de within reach.
[2024-05-06] VITALS (10 sets, daily range): BP systolic 96–127; BP diastolic 58–73; PULSE 93; O2SAT 98–99; BMI 23.4
--- NOTE | 2024-05-06 00:21 | PTCARENOTE ---
No acute change in assessment. Pt SR on the tele monitor w/ PACs. HR 60-70s. BP stable. Pt 98% on RA. All surgical sites stable. Pt stood at side of bed to void then repositioned back into bed. Call de within reach.
--- NOTE | 2024-05-06 03:48 | PTCARENOTE ---
No change in assessment. VSS. Labs sent. Pt OOB to walk around jacob and then repositioned back into bed. Call de within reach.
[2024-05-06 04:17] LABS: INR 1.04; PT 13.9 Sec (11.4-14.6)
[2024-05-06 05:03] LABS: Blood Urea Nitrogen 27 mg/dl (9-20); Calcium 8.2 mg/dl (8.4-10.2); Carbon Dioxide 26 mmol/L (22-30); Chloride 101 mmol/L (98-107); Estimated Creatinine Clearance 57 ml/min; Glucose 93 mg/dl (70-99); Magnesium 2.1 mg/dl (1.6-2.3); Potassium 3.9 mmol/L (3.5-5.1); Sodium 136 mmol/L (135-145); eGFR > 60.00
--- NOTE | 2024-05-06 05:37 | W.PN.CT ---
Today's Communication / Plan
-
-pod #5
-looks and feels well, no complaints, wants to go home. Pt states walking in a hallway and steps without difficulty
-intermittent brief runs of PACs overnight, feels palpitations. No bradycardia or pauses
-holding BB and Amio postop d/t postop bradycardia
-diuresed with 40 po Lasix and Diamox on 05/05 (UO 775)- wt went down 2 lbs in 24 hrs
-current meds (ASA, Plavix, Lipitor, Feosol, Protonix). Plans to re-start Coumadin 05/06 for hx a-fib/PE
-plan for d/c with Rhythm monitor
Assessment / Plan
-
- Mv-CAD - s/p CABG x 4 (JOHN to LAD, GSV to D1, GSV to OM, GSV to RPDA); Encompass MAZE procedure; ELAA (#35 AtriClip) by Dr. Bolton on 05/01/24, pod #5
- Hx PE 2021
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
- Thoracic aneurysm 4.2 cm
- HTN/ HLD
- Acute postop blood loss anemia- stable, no transfusion
- Acute postop thrombocytopenia - stable
- Acute postop bradycardia with pauses, requiring pacing @40- improved
- Acute postop atelectasis
- Acute postop suspected pericarditis/+ rub
- Acute postop hypovolemia with subsequent hypervolemia
- Acute postop intermittent brief runs of PACs
Discussed patient care with: Nursing and Care Team
Subjective
Procedure
s/p CABG x 4 (JOHN to LAD, GSV to D1, GSV to OM, GSV to RPDA); Encompass MAZE procedure; ELAA (#35 AtriClip) by Dr. Bolton on 05/01/24
-
Date of Service: May 06, 2024
Objective Data
-
Lab Results
05/05/24 02:44
PT 13.4 Sec (11.4-14.6) 05/05/24 07:59
INR 0.99 05/05/24 07:59
APTT 32.8 Sec (23.4-35.0) 05/01/24 13:29
Vital Signs
Vital Signs
Temp Pulse Resp BP Pulse Ox
98.5 F 73 18 105/67 98
05/05/24 23:13 05/05/24 23:13 05/05/24 23:13 05/05/24 23:13 05/05/24 23:13
CT Intake/Output/Weight
05/05/24 05/05/24 05/06/24
06:59 18:59 06:59
Intake Total 50 / 180 650 / 660 10 / 660
Output Total 600 / 1625 775 / 1175 400 / 1175
Balance -550 / -1445 -125 / -515 -390 / -515
SaO2: 98
Physical Exam
-
General: Awake and AOx3
Cardiovascular: Regular rate & rhythm (occasional brief runs of PACs), No Murmurs and No Rub
Respiratory: Decreased Breath Sounds
Sternum: Stable
Incision: Clean, Dry and Intact
Extremities: Other (trace edema b/l, warm b/l)
Abdomen: soft, nontender, nondistended, + bowel sounds, + BMs x2
Data Reviewed
-
Lab Results: Results Reviewed
Medications: Active Meds Reviewed
Chest X-Ray: Report Reviewed and Image Reviewed
ECG: Report Reviewed and Image Reviewed
[2024-05-06] MEDS: TYLENOL 1000 MG PO (06:27)
[2024-05-06] MEDS: LIDOCAINE 4% PATCH TOPICAL (07:38)
--- NOTE | 2024-05-06 08:31 | PTCARENOTE ---
Patient received from night auditor resting oob in chair, AAO X 3, denies pain. NSR w/frequent PAC's via cm, SaO2 @ 96% on RA. RIJ Cordis w/kvo infusing. Epicardial V-wire, insulated. All procedural sites stable. Patient updated to plan of care for
the day including possible d/c home, in agreement. See work list for full assessment and interventions performed.
--- NOTE | 2024-05-06 08:38 | W.PN.CARDCBS ---
Today's Communication / Plan
-
Telemetry with frequent PACs and sinus tachycardia
Will add low-dose Toprol 25 mg daily
If heart rate improved stable cardiology status for discharge today
Impression / Plan
-
.
PCP: Dr. Erin Gabriel
Pipe Stem Sawyer: Dr. Guzman ([facility] Cardiology)
Impression:
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
s/p CABG x 4 (JOHN to LAD, GSV to D1, GSV to OM, GSV to RPDA), MAZE, ELAA (#35 AtriClip) 05/01/2024
Post op bradycardia/pauses
Paroxysmal atrial fibrillation
h/o PE 2021
Chronic coumadin AC
ECG with pericarditis
Echo 04/24/2024 @[facility]: EF 64%, mild MR
Plan:
Telemetry with sinus tachycardia and frequent PACs
We will try low-dose Toprol 25 mg daily
Amiodarone on hold due to postop bradycardia and pauses which have resolved
Coumadin restarted on 05/05
If heart rate improved stable cardiology status for discharge today
Discussed with CT surgery PA
Progress Note - Pipe Stem Sawyer
Subjective
Date of Service: May 06, 2024
Complains of heart racing. Telemetry with sinus tachycardia and frequent PACs
Objective
Labs:
05/05/24 02:44
05/06/24 03:20
Labs
Hgb 9.7 g/dL (13.0-18.0) L 05/05/24 02:44
Hct 27.7 % (39.0-52.0) L 05/05/24 02:44
Plt Count 171 10^3/uL (130-400) 05/05/24 02:44
PT 13.9 Sec (11.4-14.6) 05/06/24 03:20
INR 1.04 05/06/24 03:20
APTT 32.8 Sec (23.4-35.0) 05/01/24 13:29
Sodium 136 mmol/L (135-145) 05/06/24 03:20
Potassium 3.9 mmol/L (3.5-5.1) 05/06/24 03:20
BUN 27 mg/dl (9-20) H 05/06/24 03:20
Creatinine 1.1 mg/dL (0.7-1.3) 05/06/24 03:20
Glucose 93 mg/dl (70-99) 05/06/24 03:20
Vital Signs and I&O:
Vital Signs
Temp Pulse Resp BP Pulse Ox
98.1 F 104 19 96/63 96
05/06/24 07:51 05/06/24 08:30 05/06/24 07:51 05/06/24 07:46 05/06/24 07:58
Vital Signs
Temp Pulse Resp BP Pulse Ox
98.1 F 104 19 96/63 96
05/06/24 07:51 05/06/24 08:30 05/06/24 07:51 05/06/24 07:46 05/06/24 07:58
Intake & Output
05/04/24 05/05/24 05/06/24 05/07/24
06:59 06:59 06:59 06:59
Intake Total 120 / 120 110 / 180 730 / 730 270 / 270
Output Total 1340 / 1340 1625 / 1625 1725 / 1725
Balance -1220 / -1220 -1515 / -1445 -995 / -995 270 / 270
Physical Exam
Physical Exam
General: Well developed, well nourished in NAD.
Neck: Supple, no JVD, HJR, carotids +2 B/L, no bruits bilaterally.
Heart: Non displaced PMI, RRR, no murmurs, No S3, S4, no rubs.
Lungs: Scattered rhonchi
Sternal dressings noted
Extremities: No clubbing, cyanosis or edema bilaterally.
Neuro: Grossly nonfocal, awake, alert and oriented x3.
[2024-05-06] MEDS: PLAVIX 75 MG PO (08:52)
[2024-05-06] MEDS: LASIX 40 MG PO (08:52)
[2024-05-06] MEDS: KCL 40 MEQ PO (08:52)
[2024-05-06] MEDS: LOW STRENGTH ASPIRIN 81 MG PO (08:53)
[2024-05-06] MEDS: TOPROL XL 25 MG PO (08:53)
[2024-05-06] MEDS: NEURONTIN 100 MG PO ×3 (08:53→20:56)
[2024-05-06] MEDS: VITAMIN C 500 MG PO (08:53)
[2024-05-06] MEDS: PROTONIX 40 MG PO (08:53)
[2024-05-06] MEDS: FEOSOL 325 MG PO (08:53)
[2024-05-06] MEDS: SENOKOT-S PO ×2 (08:54→20:55)
--- NOTE | 2024-05-06 09:44 | CM ---
Chart reviewed. Patient is independent of ADLS, lives with his in a 2 STH, 0 HANY, 0 DME. Patient restarted on his BB. Patient OOB sitting in the chair. Plan is for the patient to return home with CT Transitional RN. CM to follow
--- NOTE | 2024-05-06 11:55 | PTCARENOTE ---
VS obtained, assessment stable. Patient remains oob in chair, watching TV, denies pain. Perusing menu for lunch.
[2024-05-06] MEDS: TYLENOL 500 MG PO ×2 (14:04→21:24)
[2024-05-06] MEDS: NSS IV (14:21)
--- NOTE | 2024-05-06 16:14 | PTCARENOTE ---
VS obtained, assessment unchanged. NSR via cm w/less ectopy noted. Patient assisted back to bed, Cordis d/c'd as ordered. Patient tolerated well. Resting until dinner.
[2024-05-06] MEDS: LIPITOR 80 MG PO (17:33)
[2024-05-06] MEDS: COUMADIN 7.5 MG PO (17:33)
--- NOTE | 2024-05-06 21:15 | PTCARENOTE ---
Report received from RICHIE Henry. Walking rounds done. Pt assisted to BR to void and have a BM. Pt helped back to bed. Given CHG bath. Dressing change done to old CT sites and PW site. Pt oriented x 4, speech clear, no facial asymmetry. Moves
extremities with equal strength. Does c/o feeling 'brain fog'. Naz SADLER at bedside and aware. On room air. Sats 96-97%. BBS present. Diminished bilaterally. Audible heart tones. Pt in SR with PACs. When up to BR pt tachycardic with multiple PAC's,
resembling AF at times. Did receive Coumadin 7.5 mg on day shift. For pulse and wound assessments, see flowsheets. V wire insulated to chest.
Belly soft, nontender. Normoactive bs x 4. Pt with moderate BM, brown. Pt voids clear, yellow urine.
Pt helped to supine position in bed. Attempting to go to sleep. Requested 500 mg Tylenol as his scheduled dose. Naz SADLER made aware and agreed to this dose. Ongoing plan of care.
[2024-05-07] VITALS (7 sets, daily range): BP systolic 97–136; BP diastolic 60–68; PULSE 89; O2SAT 97–99; BMI 23.2
--- NOTE | 2024-05-07 01:15 | PTCARENOTE ---
Pt awake. Helped to standing to void clear, yellow urine: 300 mls. Helped back to bed. VS done. Pt without c/o pain. Attempting to go back to sleep.
--- NOTE | 2024-05-07 05:04 | PTCARENOTE ---
Labs drawn and sent. Pt up to void 300 mls clear, yellow urine. Pt then weighed on standing scale. Pt helped back to bed.
[2024-05-07 05:29] LABS: INR 1.01; PT 13.8 Sec (11.4-14.6)
[2024-05-07 05:41] LABS: Blood Urea Nitrogen 24 mg/dl (9-20); Calcium 8.3 mg/dl (8.4-10.2); Carbon Dioxide 27 mmol/L (22-30); Chloride 103 mmol/L (98-107); Estimated Creatinine Clearance 57 ml/min; Glucose 99 mg/dl (70-99); Potassium 4.6 mmol/L (3.5-5.1); Sodium 138 mmol/L (135-145); eGFR > 60.00
--- NOTE | 2024-05-07 07:14 | W.PN.CT ---
Today's Communication / Plan
-
-pod #6
-started on Toprol 25 mg qd on 05/06 for palpitations/intermittent a-tach runs. Less ectopy overnight and he is feeling better. Rhythm monitor is on.
-Coumadin started 05/06 - got 7.5 mg. INR today 1.01
-will plan to stop Plavix at discharge and continue ASA and Coumadin at home
-will hold Gabapentin since pt states 'feeling foggy' today. He hasn't been getting narcotics in the past 4 days. He's A&O x4
-diuresed with 40 po Lasix on 05/06 (UO 825)
-continue IS, ambulate
-possible d/c soon
Assessment / Plan
-
- Mv-CAD - s/p CABG x 4 (JOHN to LAD, GSV to D1, GSV to OM, GSV to RPDA); [facility] MAZE procedure; ELAA (#35 AtriClip) by Dr. Bolton on 05/01/24, pod #6
- Hx PE 2021
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
- Thoracic aneurysm 4.2 cm
- HTN/ HLD
- Acute postop blood loss anemia- stable, no transfusion
- Acute postop thrombocytopenia - stable
- Acute postop bradycardia with pauses, requiring pacing @40- improved
- Acute postop atelectasis
- Acute postop suspected pericarditis/+ rub
- Acute postop hypovolemia with subsequent hypervolemia
- Acute postop intermittent brief runs of PACs- re-started on Toprol and Coumadin on 05/06. Rhythm monitor placed 05/06
Discussed patient care with: Nursing and Care Team
Subjective
Procedure
s/p CABG x 4 (JOHN to LAD, GSV to D1, GSV to OM, GSV to RPDA); [facility] MAZE procedure; ELAA (#35 AtriClip) by Dr. Bolton on 05/01/24
-
Date of Service: May 06, 2024
Objective Data
-
Lab Results
05/05/24 02:44
05/06/24 03:20
PT 13.9 Sec (11.4-14.6) 05/06/24 03:20
INR 1.04 05/06/24 03:20
APTT 32.8 Sec (23.4-35.0) 05/01/24 13:29
Vital Signs
Vital Signs
Temp Pulse Resp BP Pulse Ox
98.2 F 76 17 113/65 97
05/06/24 21:18 05/06/24 21:18 05/06/24 21:18 05/06/24 21:18 05/06/24 21:18
CT Intake/Output/Weight
05/06/24 05/06/24 05/07/24
06:59 18:59 06:59
Intake Total 80 / 730 330 / 330
Output Total 950 / 1725 825 / 1050 225 / 1050
Balance -870 / -995 -495 / -720 -225 / -720
SaO2: 97
Physical Exam
-
General: Awake and AOx3
Cardiovascular: Regular rate & rhythm and No Rub
Respiratory: Clear and Decreased Breath Sounds
Sternum: Stable
Incision: Clean, Dry and Intact
Extremities: Other (trace edema b/l)
Abdomen: soft, nontender, nondistended, + bowel sounds, + BMs
Data Reviewed
-
Lab Results: Results Reviewed
Medications: Active Meds Reviewed
Chest X-Ray: Report Reviewed and Image Reviewed
ECG: Report Reviewed and Image Reviewed
[2024-05-07] MEDS: TYLENOL 500 MG PO (07:21)
--- NOTE | 2024-05-07 07:51 | W.DCSUMMARY ---
Discharge Summary
Discharge Data
Date of Admission: 04/29/24
Date of Discharge: 05/07/24
-
Pending Results: No
Hospital Course
Primary care physician: Erin Gabriel
Outpatient backshoe person: Chris Guzman
Inpatient consultants: [facility] Cardiology
Procedures:
1. CABG, MAZE, left atrial appendage clip
Primary Diagnosis:
1. Coronary artery disease
Secondary Diagnoses:
1. Paroxysmal atrial fibrillation
2. History of pulmonary embolism in 2021
3.Thoracic aneurysm 4.2 cm
4. HTN
5. HLD
6. Acute postop blood loss anemia
7. Acute postop thrombocytopenia
8. Acute postop bradycardia with pauses
9. Acute postop suspected pericarditis/+ rub
10. Acute postoperative atrial tachycardia
HPI: 70-year-old male followed by Dr. Chris Guzman for a history of atrial fibrillation (since 2017) and pulmonary embolism (2021)- on Coumadin (last dose 04/23), who had a positive nuclear stress test last week due to approximately a year long
history of throat tightness ('like a fish flopping around') that worsened with stressful activity but sometimes occurred while watching TV. Mr. Weinstein presented to [facility] 04/29/24 for an elective heart cath which revealed triple-vessel
coronary disease. He was transition to intravenous heparin in preparation for surgery.
Hospital course: On 05/01, patient underwent [facility] MAZE procedure, ELAA (#35 AtriClip), and CABG x 4 (JOHN to LAD, GSV to D1, GSV to OM, GSV to RPDA). Postprocedure PAULINA reported an EF of 55-60% without regional wall motion abnormalities.
Patient received no intraoperative blood products and returned to CVICU on Levophed, Precedex, and insulin. Patient received 1 L of lactated Ringer's for postoperative hypotension. Postop day 1, Levophed was weaned off. Patient had intermittent
sinus pauses requiring temporary venous pacing. On postoperative day 2, rhythm was improved and patient required no further pacing. Postoperative day #3, patient received 40 mg of IV Lasix. On postoperative day #5, patient had a lot of runs of
atrial tachycardia and was started on Toprol 25 mg daily patient was also started on his home dose of Coumadin at 7.5 mg daily. Aspirin and Plavix were continued until discharge and patient will transition to Coumadin and aspirin for discharge.
The INR will continue to be monitored by Dr. Guzman. Dr. Guzman office notified of patient's discharge today on continued home dose Coumadin with current INR of 1.0. Transitional care nurse will see patient on Thursday 05/11 for initial INR draw.
Further testing frequency will be determined by Dr. Guzman' office. Patient will continue on a Rhythm Star heart monitor to be followed by cardiology upon discharge. Aquacel dressing removed and sternotomy incision noted to be clean, dry, and
intact. Temporary ventricular wires cut at skin level. Patient ambulated with cardiac rehab and deemed stable for discharge home today.
Home medication changes:
Toprol 50 mg decreased to 25 mg daily
Discharge Plan
-
Patient Disposition: Home (Routine Discharge)
Discharge Diagnosis/Procedures: A-fib/CAD s/p CABG
Condition: Good
Diet: Low Cholesterol and Low Sodium
Activity: No strenuous activity
Driving Restrictions: Not until seen by your Dr
Bathing Restrictions: OK to Shower
Blood Work: INR on 05/[address] Chris Guzman
Others Tests: 2 week rhythm star monitor, being placed prior to discharge
Other Services: Cardiac Rehab
Specialty Instructions: Weigh Daily- Call MD for wt gain/loss 3 lbs overnight/5 lbs in 1 week
Activity Restrictions/Additional Instructions:
Please call [facility] to get scheduled for outpatient Cardiac Rehab. P: [phone]
ACTIVITY:
-No strenuous activity: no heavy lifting, pushing, pulling anything over 15 pounds for one month
-continue to use stairs as tolerated
DRIVING RESTRICTIONS:
-No driving for one month or until approved by your surgeon
WOUND CARE:
-Shower daily. Use soap & water.
-No lotions, creams or powders on incision area.
DIET:
-continue a low fat/low cholesterol diet.
-IF you are diabetic, continue carb controlled diet.
CARDIAC REHAB:
-Please make appointment to start in 5-6 weeks with your local hospital program. (See Cardiac Rehabilitation Discharge Booklet).
SPECIALTY INSTRUCTIONS:
-Weigh yourself daily. Call your physician for any weight gain/loss of 3 lbs overnight or 5 lbs in one week.
-REPORT any clicking noise or uneven appearance of your sternum to your surgeon immediately.
-If you smoke, you are instructed to quit. The [place] smoking hotline phone number is [phone]
Stand Alone Forms: DC Instructions- Cath/EP Lab, DC Inst - Implanted Device
Referrals:
CT Transitional Care Nurse [Outside]
(The Cardiothoracic Transitional Care Nurse will call you to set up a visit in 1-2 days.
This visit will include pacemaker incision check as well)
Erin Gabriel DO [Family Provider] - in one to two months
Errol Bolton MD [Active] - 05/26/24 2:00 pm
Chris Guzman DO [Affiliate] - 06/16/24 8:45 am (Cardiology followup appointment)
Prescriptions:
New
atorvastatin 80 mg Tablet
80 mg PO QPM Qty: 30 1RF
pantoprazole 40 mg Tablet,Delayed Release (Dr/Ec)
40 mg PO DAILY Qty: 30 1RF
aspirin 81 mg Tablet,Chewable
81 mg PO DAILY Qty: 0 0RF
metoprolol succinate 25 mg Tablet Extended Release 24 Hr
25 mg PO DAILY Qty: 30 1RF
Continued
acetaminophen [Tylenol] 325 mg Tablet
650 mg PO Q6H PRN (Reason: MILD PAIN)
warfarin 7.5 mg Tablet
7.5 mg PO QPM
Discontinued
nitroglycerin 0.4 mg Tablet, Sublingual
0.4 mg SUBLINGUAL Q5-15M PRN (Reason: CHEST PAIN)
metoprolol succinate 50 mg Tablet Extended Release 24 Hr
50 mg PO QPM
Care Plan Goals
Care Plan Goals:
Problem: Readiness for enhanced knowledge related to diagnosis and treatment plan
Goal: Understand your diagnosis and treatment plan needs, including medications if applicable.
Instructions: Know your diagnosis, underlying causes and treatment plan options, including medications if applicable. Consult with your health care team to learn about your diagnosis and treatment plan, including medications if applicable.
Discharge Date and Time
Print Language: UPPER SORBIAN
[2024-05-07] MEDS: NSS IV (08:06)
[2024-05-07] MEDS: PLAVIX 75 MG PO (08:28)
[2024-05-07] MEDS: VITAMIN C 500 MG PO (08:28)
[2024-05-07] MEDS: FEOSOL 325 MG PO (08:28)
[2024-05-07] MEDS: TOPROL XL 25 MG PO (08:28)
[2024-05-07] MEDS: LOW STRENGTH ASPIRIN 81 MG PO (08:28)
[2024-05-07] MEDS: PROTONIX 40 MG PO (08:28)
--- NOTE | 2024-05-07 10:54 | PTCARENOTE ---
discharge order placed by SPECTROGRAPHER. all dressings removed. iv d/c'd and tele pack removed. placed in shower.
== END 2024-05-07 11:00 | disposition home or self-care (01) | DRG 234 ==
LOC: CVICU 18:36
PROVIDERS: Anesthesiology; Nurse Practitioner; Physician Assistant Medical; ADMITTING PHYSICIAN Internal Medicine Interventional Cardiology; ATTENDING PHYSICIAN Thoracic Surgery (Cardiothoracic Vascular Surgery); CONSULT PHYSICIAN Internal Medicine Critical Care Medicine; FAMILY PHYSICIAN Family Medicine
PROC: B2111ZZ Fluoroscopy of Multiple Coronary Arteries using Low Osmolar Contrast (ICD-10-PCS; 2024-04-29)
PROC: B2151ZZ Fluoroscopy of Left Heart using Low Osmolar Contrast (ICD-10-PCS; 2024-04-29)
PROC: 4A023N7 Measurement of Cardiac Sampling and Pressure, Left Heart, Percutaneous Approach (ICD-10-PCS; 2024-04-29)
PROC: 021209W Bypass Coronary Artery, Three Arteries from Aorta with Autologous Venous Tissue, Open Approach (ICD-10-PCS; 2024-05-01)
PROC: 02L70CK Occlusion of Left Atrial Appendage with Extraluminal Device, Open Approach (ICD-10-PCS; 2024-05-01)
PROC: 02100ZC Bypass Coronary Artery, One Artery from Thoracic Artery, Open Approach (ICD-10-PCS; 2024-05-01)
PROC: B24BZZ4 Ultrasonography of Heart with Aorta, Transesophageal (ICD-10-PCS; 2024-05-01)
PROC: 5A1221Z Performance of Cardiac Output, Continuous (ICD-10-PCS; 2024-05-01)
PROC: 06BP4ZZ Excision of Right Saphenous Vein, Percutaneous Endoscopic Approach (ICD-10-PCS; 2024-05-01)
DX: I25.118 Atherosclerotic heart disease of native coronary artery with other forms of angina pectoris (principal); D62 Acute posthemorrhagic anemia; I30.8 Other forms of acute pericarditis; I47.19 Other supraventricular tachycardia; J98.11 Atelectasis; D69.59 Other secondary thrombocytopenia; I48.0 Paroxysmal atrial fibrillation; I71.20 Thoracic aortic aneurysm, without rupture, unspecified; I10 Essential (primary) hypertension; E78.5 Hyperlipidemia, unspecified; R00.1 Bradycardia, unspecified; I95.81 Postprocedural hypotension; E87.70 Fluid overload, unspecified; E86.1 Hypovolemia; Z79.01 Long term (current) use of anticoagulants; Z79.899 Other long term (current) drug therapy; Z86.711 Personal history of pulmonary embolism
CPT/HCPCS: 71045; 71046; 71250; 80048; 80053; 80061; 81003; 82248; 82330; 82565; 82805; 82947; 82962; 83036; 83735; 84132; 84302; 84520; 85014; 85018; 85027; 85049; 85610; 85730; 86850; 86900; 86901; 86920; 93005; 93312; 93320; 93325; 93458; 93880; 94002; C1894; P9045; P9047; Q9967